=== PATIENT | male | born 1965 | race Caucasian/White ===

== ENCOUNTER 2020-02-05 03:31 | Inpatient (IN) | payer BC, SELFPAY ==
[2020-02-05] VITALS (15 sets, daily range): BP systolic 105–139; BP diastolic 53–78; PULSE 70–84; RESP 13–21; TEMP 36.1–37.9; O2SAT 93–100; BMI 25.7
--- NOTE | ~2020-02-05 | US_ITS ---
EXAMINATION: US renal BI DATE: 02/08/2020 10:20 INDICATION: Acute kidney injury. Chronic kidney disease. TECHNIQUE: Multiple ultrasound grayscale images of the kidneys were obtained. COMPARISON: None. FINDINGS: The right kidney measures 12.2 x 6.1 x 6.2 cm. The left kidney measures 11.5 x 6.3 x 6.2 cm. The kidn eys demonstrate normal parenchymal echogenicity. There is no hydronephrosis. The bladder is not well distended. IMPRESSION: 1. Normal kidneys. No hydronephrosis. Reviewed, dictated and finalized at location A.
--- NOTE | ~2020-02-05 | CT_ITS ---
EXAMINATION: CT pelvis wo con DATE: 02/05/2020 09:55 INDICATION: Left hip abscess TECHNIQUE: Computed tomography (CT) of the pelvis was performed without intravenous contrast. Automat ed exposure control and iterative reconstruction technique were employed. Exam dose: 413.83 mGy-cm t otal exam DLP. COMPARISON: None FINDINGS: Normal appendix. Prostate enlargement. There is urinary bladder distention. There are calcifications of the vas defere ns bilaterally, strongly suggesting diabetes. No pelvic mass lesion or pelvic lymphadenopathy. There are bilateral inguinal lymph nodes, more promi nent on the left, measuring up to 11 mm cross-section diameter. There is soft tissue infiltration of the subcutaneous adipose tissues of the left hip, suggesting ailin lulitis. No abscess cavity is identified. There is distal abdominal aortic and bilateral iliac and femoral arterial calcifications. Prominent amount of fecal material within the rectum and colon. No pelvic fracture or bone destruction is evident. Hip joint spaces are symmetric. IMPRESSION: Probable left hip cellulitis; no abscess cavity identified Bilateral vas deferens calcifications, suggesting diabetes Prostate enlargement. Reviewed, dictated and finalized at Location A. Reviewed, dictated and finalized at location A.
--- NOTE | ~2020-02-05 | XR_ITS ---
XR chest 1V portable DATE: 02/05/2020 04:46 INDICATION: Fever TECHNIQUE: Portable upright AP chest on 02/05/2020 at 0447 hours COMPARISON: None FINDINGS: A moderately large hiatal hernia is suggested. Heart size is likely within upper normal huertas its considering magnification associated with AP projection. No pulmonary infiltrate or consolidation, pleural effusion or pneumothorax. IMPRESSION: No active pulmonary disease Moderately large hiatal hernia is suggested Reviewed, dictated and finalized at location A.
[2020-02-05 03:39] LABS: Glucose Point of Care > 500 (65-105)
--- NOTE | 2020-02-05 03:43 | PC.NURSE ---
UPON ASKING PT FOR URINE SAMPLE AND DISCUSSING POSSIBLE CATHETERIZATION, PT LOUDLY REFUSES, STATING OH NO, YOU'RE NOT GOING TO DO THAT TO ME .
--- NOTE | 2020-02-05 03:44 | ED.RECABL ---
HPI - Recheck/Abnormal Lab/Rx General Chief Complaint: Recheck/Abnormal Lab/Rx Stated Complaint: generalized weakness/ high BS Time Seen by Provider: 02/05/20 03:38 History of Present Illness HPI narrative: BIBEMS for weakness. He has been feeling increasingly weak for the past few days. This evening checked glucose and it was >500. He does not check his glucose regularly. He was reportedly hospitalized [facility] the [facility] recently for diabetic issues and CHF. during that hospitalization he also had an abscess drained in his right axilla. Now he has also developed a sore on his left hip. Related Data Home Medications Medication Instructions Recorded Confirmed acetaminophen 650 mg PO QID 02/05/20 aspirin [Aspirin Low Dose] 81 mg PO DAILY 02/05/20 atorvastatin 80 mg PO HS 02/05/20 carvedilol 18.75 mg PO BID 02/05/20 cholecalciferol (vitamin D3) 25 mcg PO DAILY 02/05/20 [Vitamin D3] clopidogrel 75 mg PO DAILY 02/05/20 ferrous sulfate 325 mg PO DAILY 02/05/20 finasteride 5 mg PO DAILY 02/05/20 glucagon HCl [Glucagon (HCl) 1 mg SUBCUT DIRECTED PRN 02/05/20 Emergency Kit] insulin glargine [Lantus U-100 25 unit SUBCUT HS 02/05/20 Insulin] metformin 1,000 mg PO BID 02/05/20 multivitamin with minerals [Daily 1 tablet PO DAILY 02/05/20 Multivitamin-Minerals] polyvinyl alcohol [Artificial 1 drp OPHTHALMIC (EYE) QID PRN 02/05/20 Tears (polyvin alc)] potassium chloride 40 meq PO DAILY 02/05/20 sacubitril-valsartan [Entresto] 1 tablet PO BID 02/05/20 spironolactone 50 mg PO TID 02/05/20 tamsulosin 0.4 mg PO HS 02/05/20 torsemide 80 mg PO BID 02/05/20 white petrolatum-mineral oil 1 applic TOPICAL BID 02/05/20 [Dermacerin] Allergies Allergy/AdvReac Type Severity Reaction Status Date / Time No Known Allergies Allergy Verified 02/05/20 03:40 Review of Systems Review of Systems: All systems reviewed & are unremarkable except as noted in HPI and below Constitutional: Constitutional: Reports fatigue and Reports weakness Cardiovascular: Cardiovascular: Denies chest pain Respiratory: Respiratory: Denies dyspnea Genitourinary: Genitourinary: Reports oliguria Neurologic: Reports dizziness and Reports numbness (feet) [facility] Past Medical History Medical History (Updated 02/05/20 @ 06:16 by Eleazar Christianson MD) CHF (congestive heart failure) Diabetes Social History Social History Gender identity (if verbalized by the patient): Male Exam Const: General: no acute distress, alert and ill appearing chronically Orientation/consciousness: patient oriented x3 HENMT: Mouth: Yes dry mucous membranes Resp: Effort & Inspection: normal respiratory effort Auscultation: clear to auscultation bilaterally Cardio: Rate: regular rate Rhythm: regular rhythm Skin: Other: erythema and induration of left hip/thigh Neuro: General: patient oriented x3, moves all extremities and CN's II-XI intact bilaterally Speech: normal speech Course Vital Signs Vital signs: Vital Signs Temperature 37.9 C H 02/05/20 03:31 Pulse Rate 82 02/05/20 03:31 Respiratory Rate 21 H 02/05/20 03:31 Blood Pressure 109/64 02/05/20 03:31 Pulse Oximetry 95 02/05/20 03:31 Temperature 37.9 C H 02/05/20 03:31 Pulse Rate 82 02/05/20 03:31 Respiratory Rate 21 H 02/05/20 03:31 Blood Pressure 109/64 02/05/20 03:31 Pulse Oximetry 95 02/05/20 03:31 MDM - Recheck/Abnormal Lab/Rx Medical Records Attestation: I reviewed the patient's medical records. Lab Data Attestation: I reviewed the patient's lab results. Result diagrams: 02/05/20 03:58 02/05/20 03:57 Labs: Lab Results 02/05/20 02/05/20 02/05/20 Range/Units 03:36 03:57 03:57 WBC (4.5-10.0) K/mm3 RBC (4.6-6.20) M/mm3 Hgb (14.0-18.0) g/dL Hct (42.0-52.0) % MCV (80-100) fl MCH (26-34) pg MCHC (32-36) g/dl RDW (11.
[2020-02-05 04:05] LABS: Basophils Percent Auto 0.3 % (0.2-1.2); Eosinophils Absolute Auto 0.1 K/mm3 (0-0.3); Eosinophils Percent Auto 0.5 % (0-4.4); Hematocrit 29.6 % (42.0-52.0); Hemoglobin 10.3 g/dL (14.0-18.0); Immature Granulocyte Absolute 0.08 K/mm3 (0.00-0.031); Immature Granulocyte Percent A 0.6 % (0-0.5); Lymphocytes Absolute Auto 0.43 K/mm3 (0.9-3.2); Lymphocytes Percent Auto 3.2 % (18.3-44.2); Mean Corpuscular HGB Conc 34.8 g/dl (32-36); Mean Corpuscular Hemoglobin 27.8 pg (26-34); Mean Corpuscular Volume 79.8 fl (80-100); Mean Platelet Volume 10.8 fl (7.4-10.4); Monocytes Absolute Auto 0.9 K/mm3 (0.1-0.6); Monocytes Percent Auto 6.9 % (2.6-8.5); Neutrophils Percent Auto 88.5 % (45.5-73.1); Platelet Count Result 193 k/mm3 (150-375); Red Blood Count 3.71 M/mm3 (4.6-6.20); Red Cell Distribution Width 14.6 % (11.5-14.5); White Blood Count 13.6 K/mm3 (4.5-10.0)
[2020-02-05 04:17] LABS: Lactic Acid Reflex 1.2 mmol/L (0.7-2.1)
[2020-02-05 04:23] LABS: Beta-Hydroxybutyrate/Acetoacetate 0.27 mmol/L (0.02-0.27)
[2020-02-05 04:28] LABS: Alanine Aminotransferase 15 U/L (4-50); Albumin Level 3.3 g/dL (3.5-5.1); Alkaline Phosphatase 82 U/L (38-126); Aspartate Amino Transferase 18 U/L (17-59); Bilirubin,Total 0.4 mg/dL (0.2-1.3); Blood Urea Nitrogen 86 mg/dL (9-20); Calcium 8.5 mg/dL (8.4-10.2); Carbon Dioxide 24 mmol/L (22-30); Chloride 88 mmol/L (98-107); Estimated CRCL calculation 26 ml/min; Estimated Glomerular Filt Rate 23; Glucose 556 mg/dL (75-110); Magnesium 1.3 mg/dL (1.6-2.3); Potassium 4.3 mmol/L (3.4-5.0); Sodium 124 mmol/L (137-145)
[2020-02-05 04:37] LABS: NT Pro B Type Natriuretic Pept 17800 PG/ML (5-100); Troponin I 0.111 ng/mL (0.000-0.034)
[2020-02-05] MEDS: SODIUM CHLORIDE 0.9% IV 500 ML 999 ML IV CONT (04:38)
[2020-02-05] MEDS: INSULIN HUMAN REGULAR (*BKC) 100 UNITS/ML 10 UNITS IV PUSH (04:40)
[2020-02-05] MEDS: SODIUM CHLORIDE 0.9% IV 1,000 ML 999 ML IV CONT (05:05)
[2020-02-05 06:26] LABS: Glucose Point of Care 415 (65-105)
--- NOTE | 2020-02-05 06:31 | ECG_ITS ---
Measurements Intervals [place] Rate: 83 P: 43 CO: 213 QRS: -59 QRSD: 114 T: 142 QT: 381 QTc: 448 Interpretive Statements SINUS RHYTHM WITH FIRST DEGREE AV BLOCK POSSIBLE LEFT ATRIAL ENLARGEMENT LEFT AXIS DEVIATION INCOMPLETE LEFT BUNDLE BRANCH BLOCK BORDERLINE R WAVE PROGRESSION, ANTERIOR LEADS ST-T WAVE ABNORMALITY IN HIGH LATERAL LEADS- CONSIDER ISCHEMIA ABNORMAL ECG Electronically Signed On 02-05-2020 7:31:14 CDT by Guillermo Cramer D.O.
--- NOTE | 2020-02-05 07:23 | ADMGEN ---
This patient, Prabhu George, was admitted to IMU Room 205-01. Patient/family oriented to hospital policies and general routines including ID bracelet, bed and alarms, visiting hours, pain management, procedures, bathroom and other care routines, personal items, smoking policy, room service/diet, and visiting hours. Valuables list has been completed. Information on how to activate the Rapid Response Team has been discussed. Patient/Family are encouraged to report perceived risks to care and to ask questions if they do not understand what they are told or what they should do.
[2020-02-05 08:55] LABS: Glucose Point of Care 444 (65-105)
--- NOTE | 2020-02-05 09:14 | PM.IMHP ---
H&P: HPI History of Present Illness Chief complaint: CELLULITIS,HYPERGLYCEMIA,DEHYDRATION,CHF,ELEVATED Narrative: Date of visit 02/04 830. Prabhu George is a 54 year old male white male with uncontrolled type 2 diabetes mellitus on insulin, chronic renal failure, systolic heart failure with coronary artery disease status post multiple stents, who presented to the emergency room by ambulance from nursing facility with complaints of weakness and pain of his left hip. Found to be severely dehydrated with elevated blood sugar and probable abscess left hip. He was bolused with 2 L in the emergency room started on antibiotics and admitted to the floor. Presently his only complaint is discomfort in the hip. He states he has recently admitted to the [facility] for abscess in his right axilla which was drained and had renal failure at that time. Review of Systems Review of Systems: Narrative: Constitutional appetite fair weight has drifted down not sure exactly how much Eyes no double vision scotoma Mouth no pharyngitis laryngitis Pulmonary no increased shortness breath wheezing or cough CV no chest pain or palpitations GI no melena hematochezia or diarrhea, no dysphagia no dysuria no hematuria but states that has trouble voiding post [place] if 1 is placed Muscle skeletal pain left hip as per present illness does walk minimal at the nursing facility Neuropsych no seizures no syncope Integument as above no other rashes PMFSH Past Medical History Medical History (Updated 02/05/20 @ 09:51 by Adam Sauceda MD) CAD (coronary artery disease) CHF (congestive heart failure) Chronic renal failure Diabetes Surgical History Surgical History (Updated 02/05/20 @ 09:43 by Adam Sauceda MD) History of coronary artery stent placement Family History Family History (Updated 02/05/20 @ 09:44 by Adam Sauceda MD) Father , metastatic melanoma age 70 No problems noted. Mother , age 76 renal failure Hypertension Social History Social History (Updated 02/05/20 @ 09:46 by Adam Sauceda MD) Social History: not and no children. 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 Years smoked: 50 Smoking status: Current some day smoker Alcohol intake: never Substance use: never Gender identity (if verbalized by the patient): Male Spiritual care concerns: No Meds Home Medications and Allergies Home Medications Medication Instructions Recorded Confirmed Type acetaminophen 650 mg PO QID PRN 02/05/20 02/05/20 History aspirin [Aspirin Low Dose] 81 mg PO DAILY 02/05/20 02/05/20 History atorvastatin 80 mg PO HS 02/05/20 02/05/20 History carvedilol 18.75 mg PO BID 02/05/20 02/05/20 History cholecalciferol (vitamin D3) 25 mcg PO DAILY 02/05/20 02/05/20 History [Vitamin D3] clopidogrel 75 mg PO DAILY 02/05/20 02/05/20 History ferrous sulfate 325 mg PO DAILY 02/05/20 02/05/20 History finasteride 5 mg PO DAILY 02/05/20 02/05/20 History glucagon HCl [Glucagon (HCl) 1 mg SUBCUT DIRECTED PRN 02/05/20 02/05/20 History Emergency Kit] insulin glargine [Lantus U-100 25 unit SUBCUT HS 02/05/20 02/05/20 History Insulin] metformin 1,000 mg PO DAILY 02/05/20 02/05/20 History multivitamin with minerals [Daily 1 tablet PO DAILY 02/05/20 02/05/20 History Multivitamin-Minerals] polyvinyl alcohol [Artificial 1 drp OPHTHALMIC (EYE) QID PRN 02/05/20 02/05/20 History Tears (polyvin alc)] potassium chloride 40 meq PO DAILY 02/05/20 02/05/20 History sacubitril-valsartan [Entresto] 1 tablet PO BID 02/05/20 02/05/20 History spironolactone 50 mg PO TID 02/05/20 02/05/20 History tamsulosin 0.4 mg PO HS 02/05/20 02/05/20 History torsemide 80 mg PO BID 02/05/20 02/05/20 History white petrolatum-mineral oil 1 applic TOPICAL BID 02/05/20 02/05/20 History [Dermacerin] Allergies Allergy/AdvReac Type Severity Reaction Status Date / Time No Known Allergies Allergy Verified
[2020-02-05] MEDS: SODIUM CHLORIDE 0.9% IV 1,000 ML 100 ML IV CONT ×2 (09:31→20:09)
[2020-02-05] MEDS: MORPHINE SULFATE 2 MG/ML INJ IV PUSH ×2 (09:32→16:51)
[2020-02-05] MEDS: INSULIN GLARGINE (*BKC) 100 UNITS/ML 30 UNITS SUB-Q (09:32)
[2020-02-05] MEDS: INSULIN ASPART (*BKC) 100 UNITS/ML 20 UNITS SUB-Q (09:32)
[2020-02-05 09:44] LABS: Troponin I 0.102 ng/mL (0.000-0.034)
[2020-02-05] MEDS: MAGNESIUM SULF 2 GM/WATER 50ML 2 GM/50 ML BAG IVPB (10:15)
[2020-02-05] MEDS: carvediloL 6.25 MG TABLET 18.75 MG PO ×2 (10:16→20:07)
[2020-02-05] MEDS: THERAPEUTIC MULTIVITAMINS/MINERALS TAB (*BKC) 1 TABLET PO (10:17)
[2020-02-05] MEDS: FINASTERIDE 5 MG TABLET PO (10:17)
[2020-02-05] MEDS: CLOPIDOGREL BISULFATE 75 MG TABLET PO (10:17)
[2020-02-05] MEDS: EUCERIN CREAM 120 GM JAR 1 APPLIC TOPICAL ×2 (10:17→17:51)
[2020-02-05] MEDS: ASPIRIN 81 MG ENTERIC TABLET PO (10:17)
[2020-02-05] MEDS: CHOLECALCIFEROL 1,000 UNIT TABLET 1000 UNITS PO (10:17)
[2020-02-05 12:23] LABS: Blood Urea Nitrogen 82 mg/dL (9-20); Calcium 8.5 mg/dL (8.4-10.2); Carbon Dioxide 24 mmol/L (22-30); Chloride 92 mmol/L (98-107); Estimated CRCL calculation 27 ml/min; Estimated Glomerular Filt Rate 24; Glucose 418 mg/dL (75-110); Phosphorus 3.5 mg/dL (2.5-4.5); Sodium 125 mmol/L (137-145)
[2020-02-05 12:37] LABS: Troponin I 0.102 ng/mL (0.000-0.034)
[2020-02-05] MEDS: IMIPENEM/CILASTATIN SODIUM 250 MG in DEXTROSE 5% 100 ML 300 MG IVPB ×2 (13:04→17:51)
[2020-02-05] MEDS: INSULIN ASPART (*BKC) 100 UNITS/ML SUB-Q (13:04)
[2020-02-05] MEDS: INSULIN ASPART (*BKC) 100 UNITS/ML 25 UNITS SUB-Q (13:14)
[2020-02-05 13:23] LABS: Glucose Point of Care 425 (65-105)
[2020-02-05 16:45] LABS: Glucose Point of Care 161 (65-105)
[2020-02-05 17:10] LABS: Blood Urea Nitrogen 82 mg/dL (9-20); Calcium 8.5 mg/dL (8.4-10.2); Carbon Dioxide 24 mmol/L (22-30); Chloride 96 mmol/L (98-107); Estimated CRCL calculation 27 ml/min; Estimated Glomerular Filt Rate 24; Glucose 135 mg/dL (75-110); Potassium 4.2 mmol/L (3.4-5.0); Sodium 127 mmol/L (137-145)
[2020-02-05] MEDS: ONDANSETRON INJ 4 MG/2 ML VIAL IV PUSH (17:51)
[2020-02-05] MEDS: TAMSULOSIN HCL 0.4 MG CAPSULE PO (20:07)
[2020-02-05] MEDS: ATORVASTATIN 40 MG TABLET 80 MG PO (20:07)
[2020-02-05 21:07] LABS: Glucose Point of Care 72 (65-105)
[2020-02-06] VITALS (13 sets, daily range): BP systolic 100–112; BP diastolic 57–71; PULSE 69–108; RESP 16–20; TEMP 36.1–36.9; O2SAT 95–99
[2020-02-06] MEDS: IMIPENEM/CILASTATIN SODIUM 250 MG in DEXTROSE 5% 100 ML 300 MG IVPB ×4 (00:25→17:38)
[2020-02-06 04:54] LABS: Basophils Percent Auto 0.3 % (0.2-1.2); Eosinophils Absolute Auto 0.2 K/mm3 (0-0.3); Eosinophils Percent Auto 1.2 % (0-4.4); Hematocrit 28.7 % (42.0-52.0); Hemoglobin 9.6 g/dL (14.0-18.0); Immature Granulocyte Absolute 0.08 K/mm3 (0.00-0.031); Immature Granulocyte Percent A 0.6 % (0-0.5); Lymphocytes Absolute Auto 0.73 K/mm3 (0.9-3.2); Lymphocytes Percent Auto 5.3 % (18.3-44.2); Mean Corpuscular HGB Conc 33.4 g/dl (32-36); Mean Corpuscular Hemoglobin 27.5 pg (26-34); Mean Corpuscular Volume 82.2 fl (80-100); Monocytes Percent Auto 7.5 % (2.6-8.5); Neutrophils Absolute Auto 11.7 K/mm3 (1.3-6.7); Neutrophils Percent Auto 85.1 % (45.5-73.1); Platelet Count Result 178 k/mm3 (150-375); Red Blood Count 3.49 M/mm3 (4.6-6.20); Red Cell Distribution Width 14.7 % (11.5-14.5); White Blood Count 13.7 K/mm3 (4.5-10.0)
[2020-02-06 05:21] LABS: Blood Urea Nitrogen 85 mg/dL (9-20); Calcium 8.2 mg/dL (8.4-10.2); Carbon Dioxide 22 mmol/L (22-30); Chloride 95 mmol/L (98-107); Estimated CRCL calculation 29 ml/min; Estimated Glomerular Filt Rate 26; Glucose 172 mg/dL (75-110); Magnesium 1.8 mg/dL (1.6-2.3); Potassium 4.2 mmol/L (3.4-5.0); Sodium 126 mmol/L (137-145)
[2020-02-06] MEDS: MORPHINE SULFATE 2 MG/ML INJ IV PUSH ×3 (06:05→20:39)
[2020-02-06] MEDS: SODIUM CHLORIDE 0.9% IV 1,000 ML 100 ML IV CONT (06:13)
[2020-02-06 07:18] LABS: Hemoglobin A1C 12.6 % (<5.7)
[2020-02-06 08:07] LABS: Glucose Point of Care 193 (65-105)
[2020-02-06] MEDS: THERAPEUTIC MULTIVITAMINS/MINERALS TAB (*BKC) 1 TABLET PO (08:21)
[2020-02-06] MEDS: FINASTERIDE 5 MG TABLET PO (08:21)
[2020-02-06] MEDS: EUCERIN CREAM 120 GM JAR 1 APPLIC TOPICAL ×2 (08:21→17:40)
[2020-02-06] MEDS: CHOLECALCIFEROL 1,000 UNIT TABLET 1000 UNITS PO (08:21)
[2020-02-06] MEDS: ASPIRIN 81 MG ENTERIC TABLET PO (08:21)
[2020-02-06] MEDS: CLOPIDOGREL BISULFATE 75 MG TABLET PO (08:21)
[2020-02-06] MEDS: carvediloL 6.25 MG TABLET 18.75 MG PO ×2 (08:22→20:44)
[2020-02-06] MEDS: INSULIN ASPART (*BKC) 100 UNITS/ML SUB-Q ×4 (08:23→17:42)
[2020-02-06] MEDS: INSULIN GLARGINE (*BKC) 100 UNITS/ML 40 UNITS SUB-Q (08:25)
[2020-02-06 11:53] LABS: Glucose Point of Care 359 (65-105)
--- NOTE | 2020-02-06 12:50 | PM.CNGS ---
Assessment and Plan Assessment and plan (1) Abscess of left thigh: Code(s): L02.416 - Cutaneous abscess of left lower limb Status: Acute Assessment and Plan: I have reviewed the CT and discussed the findings with the patient. He does appear to have an abscess developing in this localized area of cellulitis on his left thigh. I have recommended incision and drainage of abscess to be done at the bedside under local anesthetic. I discussed the procedure, risks, benefits, and alternatives. Questions were answered. Patient is agreeable with proceeding. We will continue antibiotics per hospitalist. Local wound care postoperatively. (2) Cellulitis: Qualifiers: Laterality: left Site of cellulitis: extremity Site of cellulitis of extremity: lower extremity Qualified Code(s): L03.116 - Cellulitis of left lower limb Code(s): L03.90 - Cellulitis, unspecified Status: Acute (3) CAD (coronary artery disease): Code(s): I25.10 - Atherosclerotic heart disease of [place] coronary artery without angina pectoris Status: Acute (4) CHF (congestive heart failure): Code(s): I50.9 - Heart failure, unspecified Status: Acute (5) Diabetes: Code(s): E11.9 - Type 2 diabetes mellitus without complications Status: Acute History of Present Illness Consult details Consult date: 02/06/20 Reason for consult: other (Left thigh abscess) Requesting physician: Adam Sauceda MD Narrative: This is a 54-year-old man who presented to the emergency department with cellulitis of his left lateral thigh. He states that this has been worsening over approximately the last week. He does not recall any scrapes or wounds that could have started this. He denies any prior lump or other abnormality noted in this region. He does have a recent history of a hospitalization for a right axillary abscess. This was incised and drained and has been healing well. Patient has a history of poorly controlled diabetes and significant coronary artery disease with prior history of 10 stents. Review of Systems Review of Systems: All systems reviewed & are unremarkable except as noted in HPI and below Eyes: Eyes: Denies change in vision ENT: Denies hearing loss, Denies neck pain and Denies sore throat Cardiovascular: Cardiovascular: Denies chest pain and Denies dyspnea Respiratory: Respiratory: Denies cough, Denies dyspnea and Denies wheezing Genitourinary: Genitourinary: Denies hematuria and Denies dysuria Musculoskeletal: Musculoskeletal: Denies arthralgias, Denies joint swelling and Denies neck pain Integumentary/Breasts: Skin/Breast: Reports as per HPI Allergic/Immunologic: Allergic/Immunologic: Denies wheezing [facility] Past Medical History Medical History CAD (coronary artery disease) CHF (congestive heart failure) Chronic renal failure Diabetes Surgical History Surgical History History of coronary artery stent placement Family History Family History Father , metastatic melanoma age 70 No problems noted. Mother , age 76 renal failure Hypertension Social History Social History Social History: not and no children. Disabled former class a truck driver for 25 years Years smoked: 50 Smoking status: Current some day smoker Alcohol intake: never Substance use: never Gender identity (if verbalized by the patient): Male Spiritual care concerns: No Meds Home Medications and Allergies Home Medications Medication Instructions Recorded Confirmed Type acetaminophen 650 mg PO QID PRN 02/05/20 02/05/20 History aspirin [Aspirin Low Dose] 81 mg PO DAILY 02/05/20 02/05/20 History atorvastatin 80 mg PO HS 02/05/20
--- NOTE | 2020-02-06 12:58 | P.OP_ITS ---
Procedure Note - Detailed Date of procedure: 02/06/20 Pre-op diagnosis: Left thigh abscess Post-op diagnosis: same Procedure performed: Incision and drainage left thigh abscess Description of procedure: * Left thigh area prepped and draped in sterile fashion using Betadine prep. 1% lidocaine with epinephrine infiltrated locally around area of abscess. 3 cm incision made using a 15 blade scalpel directly over the area of the central induration. Incision carried deep to the dermis until purulence drainage was encountered. A carefully broke up any loculations using a straight hemostat. Once all the purulence fluid was dr ained, the wound was packed with half-inch gauze. 4 x 4 gauze was applied followed by tape. Anesthesia: local (1% lidocaine with epinephrine) Surgeon: Ralph Escobedo DO Estimated blood loss (mL): 2 Packing: Yes (1/2 inch Nu Gauze) Complications: No immediate complications Condition: stable Disposition: floor Findings: * 3 cm incision made over the area of induration. There did appear to be several small pockets of abscess developing. About 5-10 cc of purulence fluid was drained. The wound was then packed with half-inch Nu Gauze.
--- NOTE | 2020-02-06 13:55 | PM.IMPN ---
Progress Note: A&P Assessment and Plan (1) Cellulitis: Qualifiers: Laterality: left Site of cellulitis: extremity Site of cellulitis of extremity: lower extremity Qualified Code(s): L03.116 - Cellulitis of left lower limb Code(s): L03.90 - Cellulitis, unspecified Status: Acute Assessment and Plan: With abscess. CT did not reveal any abscess cavity but surgery I and D the area with drainage of purulent material today (2) Renal failure (ARF), acute on chronic: Code(s): N17.9 - Acute kidney failure, unspecified; N18.9 - Chronic kidney disease, unspecified Status: Acute Assessment and Plan: Assumed acute on chronic. Do not know his baseline creatinine but is severely dehydrated at present time and will continue hydration but slow over 8 so as not to volume overload (3) Elevated troponin: Code(s): R79.89 - Other specified abnormal findings of blood chemistry Status: Acute Assessment and Plan: Suspect secondary to renal failure with no evidence of any ischemia even though has history of coronary disease (4) Diabetes: Code(s): E11.9 - Type 2 diabetes mellitus without complications Status: Acute Assessment and Plan: Uncontrolled. A1c 12 Increased Lantus, added NovoLog with meals, and sliding scale. CO2 normal and beta hydroxybutyrate normal with no evidence of acidosis (5) CHF (congestive heart failure): Code(s): I50.9 - Heart failure, unspecified Status: Acute Assessment and Plan: Patient states he has had ejection fraction of 10% in the past. Hydrate for his renal failure and watch for any signs of decompensation or fluid overload continue his beta-rena but hold his Entresto and diuretic with his renal status at present time (6) DVT prophylaxis: Code(s): Z29.9 - Encounter for prophylactic measures, unspecified Status: Acute Assessment and Plan: Subcu heparin with the renal failure He will need more than a 2 midnight stay (7) Hyponatremia: Code(s): E87.1 - Hypo-osmolality and hyponatremia Status: Acute Assessment and Plan: Probable primarily pseudo hyponatremia with degree hyperglycemia monitor with hydration and check urine electrolytes if need be Subjective Date/time seen: 02/06/20 13:55 Interval history: Date of visit 02/05. 48-year-old white male type 2 diabetes uncontrolled, acute on chronic renal failure, cellulitis and are abscess of left admitted for treatment of the same. Dehydrated blood sugar over 500 on admission.. Its feels better this a.m. but hip still sore. CT did not reveal any abscess cavity Exam Narrative: Exam Narrative: Blood pressure 114/70 pulse is 78 temp afebrile and satting 95% on room air Pupils equal reactive light sclera anicteric Mouth edentulous Neck supple Lungs clear CV regular rate rhythm faint systolic ejection murmur Abdomen soft nontender, bowel sounds normal active Extremities without edema dorsalis pedis posterior tibial 2+ symmetrical Over left proximal thigh lateral aspect close to the hip with there is a 4 x 4 cm indurated erythematous tender area are compatible with abscess more pronounce then 02/04 but still not fluctuant Neuro alert blood cooperative no focal deficits cranial nerves 2-12 are intact Integument as above and has a healing lesion in his right axilla from previous incision and drainage Objective Data Vital Signs Vital Signs: Vital Signs - 24 hr 02/05/20 14:00 02/05/20 16:00 02/05/20 18:00 Temperature 36.4 C Pulse Rate 78 77 77 Respiratory Rate 18 Blood Pressure 127/59 L Pulse Oximetry 96 02/05/20 19:50 02/05/20 20:00 02/05/20 20:07 Temperature Pulse Rate 71 70 70 Respiratory Rate 18 Blood Pressure 108/57 L Pulse Oximetry 93 02/05/20 22:00 02/05/20 23:58 02/06/20 00:00 Temperature 36.1 C L Pulse Rate 71 74 72 Respiratory Rate 18 Blood Pressure 105/53 L Pulse Oximetr
[2020-02-06] MEDS: INSULIN GLARGINE (*BKC) 100 UNITS/ML 10 UNITS SUB-Q (15:14)
--- NOTE | 2020-02-06 15:25 | PC.NURSE ---
Addendum entered by Keri Whitlock RN 02/06/20 15:37: This patient, Prabhu George, was transferred to [facility] 322 from [facility] via bed at 1525. Personal belongs sent with patient. Belongings list checked and signed with receiving RN. Report given to ZAIDA Tapia. Appropriate documentation sent with patient. Original Note: This patient, Prabhu George, was transferred to [ ] on 02/06/20 at 1525. Personal belongings sent with patient. Belongings list checked and signed with receiving [ ]. Report given to [ ]. Appropriate documentation sent with patient.
[2020-02-06] MEDS: INSULIN ASPART (*BKC) 100 UNITS/ML 10 UNITS SUB-Q (17:43)
[2020-02-06 17:47] LABS: Glucose Point of Care 235 (65-105)
--- NOTE | 2020-02-06 18:22 | PC.NURSE ---
This patient, Prabhu George, was received from [facility] on 02/06/20 at 1525. Personal belongings list checked and signed. Patient/family oriented to unit policies and routines
[2020-02-06] MEDS: ATORVASTATIN 40 MG TABLET 80 MG PO (20:43)
[2020-02-06] MEDS: TAMSULOSIN HCL 0.4 MG CAPSULE PO (20:45)
[2020-02-06] MEDS: SODIUM CHLORIDE 0.9% IV 1,000 ML 50 ML IV CONT (20:47)
[2020-02-06 21:00] LABS: Add Urine Microscopic? YES; Appearance Urine Cloudy (Clear); Bacteria Urine Trace /hpf; Bilirubin Urine Negative (Negative); Blood Urine Negative (Negative); Color Urine Yellow (Yellow); Glucose Urine UA 3+ mg/dL (Negative); Ketones Urine Negative (Negative); Leukocyte Esterase Ur Negative LEU/UL (Negative); Mucus Urine Rare /lpf; Nitrate Urine Negative (Negative); Protein Urine 3+ mg/dL (Negative); Specific Grav Ur 1.011 (1.001-1.035); Squamous Epithelial Cell Urine Rare /hpf (Few); WBC Urine 0-3 /hpf
[2020-02-06 21:12] LABS: Creatinine Urine 71.9 mg/dL
[2020-02-06 21:13] LABS: Sodium Urine Random 14 meq/L
[2020-02-06 21:39] LABS: Glucose Point of Care 174 (65-105)
[2020-02-06] MEDS: CALCIUM CARBONATE (TUMS) 500 MG (200 MG ELEMENTAL) PO (22:34)
[2020-02-07] MEDS: IMIPENEM/CILASTATIN SODIUM 250 MG in DEXTROSE 5% 100 ML 300 MG IVPB ×5 (00:28→23:46)
[2020-02-07] MEDS: MORPHINE SULFATE 2 MG/ML INJ IV PUSH ×2 (05:35→13:59)
[2020-02-07] MEDS: CALCIUM CARBONATE (TUMS) 500 MG (200 MG ELEMENTAL) PO (05:36)
[2020-02-07 06:00] VITALS: BP 102/55; PULSE 76; RESP 20; TEMP 36.7; O2SAT 94
[2020-02-07 06:01] LABS: Basophils Percent Auto 0.2 % (0.2-1.2); Eosinophils Absolute Auto 0.2 K/mm3 (0-0.3); Hematocrit 26.3 % (42.0-52.0); Hemoglobin 8.8 g/dL (14.0-18.0); Immature Granulocyte Absolute 0.08 K/mm3 (0.00-0.031); Immature Granulocyte Percent A 0.7 % (0-0.5); Lymphocytes Absolute Auto 0.66 K/mm3 (0.9-3.2); Lymphocytes Percent Auto 5.7 % (18.3-44.2); Mean Corpuscular HGB Conc 33.5 g/dl (32-36); Mean Corpuscular Hemoglobin 27.7 pg (26-34); Mean Corpuscular Volume 82.7 fl (80-100); Mean Platelet Volume 10.4 fl (7.4-10.4); Monocytes Absolute Auto 0.7 K/mm3 (0.1-0.6); Monocytes Percent Auto 6.4 % (2.6-8.5); Neutrophils Absolute Auto 9.8 K/mm3 (1.3-6.7); Platelet Count Result 178 k/mm3 (150-375); Red Blood Count 3.18 M/mm3 (4.6-6.20); Red Cell Distribution Width 14.6 % (11.5-14.5); White Blood Count 11.5 K/mm3 (4.5-10.0)
[2020-02-07 06:15] LABS: Albumin Level 2.6 g/dL (3.5-5.1); Blood Urea Nitrogen 82 mg/dL (9-20); Calcium 7.9 mg/dL (8.4-10.2); Carbon Dioxide 21 mmol/L (22-30); Chloride 95 mmol/L (98-107); Estimated CRCL calculation 27 ml/min; Estimated Glomerular Filt Rate 24; Glucose 218 mg/dL (75-110); Phosphorus 4.8 mg/dL (2.5-4.5); Potassium 4.6 mmol/L (3.4-5.0); Sodium 125 mmol/L (137-145)
[2020-02-07 06:54] LABS: Iron 54 ug/dL (49-181)
[2020-02-07 07:03] LABS: Percent Iron Saturation 29 % (20-50)
--- NOTE | 2020-02-07 08:32 | PCOTNOTE ---
Patient refusing therapy this AM. Patient Agitated and refusing to participate at this time despite encouragement. Will attempt OT evaluation at later time.
[2020-02-07 08:41] LABS: Glucose Point of Care 214 (65-105)
[2020-02-07] MEDS: INSULIN ASPART (*BKC) 100 UNITS/ML SUB-Q ×2 (08:53→12:39)
[2020-02-07] MEDS: INSULIN ASPART (*BKC) 100 UNITS/ML 10 UNITS SUB-Q ×3 (08:54→17:59)
[2020-02-07] MEDS: INSULIN GLARGINE (*BKC) 100 UNITS/ML 50 UNITS SUB-Q (08:59)
[2020-02-07] MEDS: EUCERIN CREAM 120 GM JAR 1 APPLIC TOPICAL ×2 (09:00→17:56)
[2020-02-07] MEDS: THERAPEUTIC MULTIVITAMINS/MINERALS TAB (*BKC) 1 TABLET PO (09:01)
[2020-02-07] MEDS: ASPIRIN 81 MG ENTERIC TABLET PO (09:01)
[2020-02-07] MEDS: CHOLECALCIFEROL 1,000 UNIT TABLET 1000 UNITS PO (09:01)
[2020-02-07] MEDS: CLOPIDOGREL BISULFATE 75 MG TABLET PO (09:01)
[2020-02-07] MEDS: FINASTERIDE 5 MG TABLET PO (09:01)
[2020-02-07 09:02] VITALS: PULSE 74
[2020-02-07] MEDS: carvediloL 6.25 MG TABLET 18.75 MG PO ×2 (09:02→20:28)
--- NOTE | 2020-02-07 10:03 | PM.PNGS ---
Progress Note: A&P Assessment and Plan (1) Abscess of left thigh: Code(s): L02.416 - Cutaneous abscess of left lower limb Status: Acute Assessment and Plan: Continue local wound care with daily dressing changes. Packing changes will be able to be done at [place] on discharge. Will add silver gel to the wound care prior to packing on the left thigh wound. Okay to discharge the patient from a surgical standpoint when okay with other services. Follow-up in the office with Dr. Escobedo or myself in 1-2 weeks. (2) Cellulitis: Qualifiers: Laterality: left Site of cellulitis: extremity Site of cellulitis of extremity: lower extremity Qualified Code(s): L03.116 - Cellulitis of left lower limb Code(s): L03.90 - Cellulitis, unspecified Status: Acute Assessment and Plan: Improving. Continue antibiotics. See plan above. (3) CAD (coronary artery disease): Code(s): I25.10 - Atherosclerotic heart disease of [place] coronary artery without angina pectoris Status: Acute (4) CHF (congestive heart failure): Code(s): I50.9 - Heart failure, unspecified Status: Acute (5) Diabetes: Code(s): E11.9 - Type 2 diabetes mellitus without complications Status: Acute Assessment and Plan: Glucose in 500's on admission. Blood glucose improving with this in the 200's overnight and this morning. Management per Hospitalist. Additional Plan Discussed plan of care with Dr. Escobedo. Subjective Subjective Date/Time Seen: 02/07/20 09:10 Post Op day: 1 (I&D left thigh abscess) Patient reports: no new complaints, feels better and pain is less Interval history: Patient reports feeling better today. States his left thigh pain has improved since the I&D with less pressure pain. No acute events overnight or other complaints at this time. Review of Systems Review of Systems: All systems reviewed & are unremarkable except as noted in HPI and below Exam Const: General: comfortable and no acute distress Orientation/consciousness: patient oriented x3 Skin: Other: Left lateral posterior thigh incision packing removed. Surrounding erythema and induration seems to be improved and patient reportedly is less tender. No purulent drainage noted. At the base of the wound bed there is loose thomas slough. Neuro: General: moves all extremities and no focal motor deficits Extrem: General: normal to inspection Objective Data Vital Signs Vital Signs: Vital Signs - 24 hr 02/06/20 10:11 02/06/20 12:00 02/06/20 14:00 Temperature 36.9 C Pulse Rate 74 78 69 Respiratory Rate 20 Blood Pressure 112/71 Pulse Oximetry 95 02/06/20 16:00 02/06/20 20:44 02/06/20 22:00 Temperature 36.3 C L 36.7 C Pulse Rate 75 78 77 Respiratory Rate 18 20 Blood Pressure 109/66 100/57 L Pulse Oximetry 99 96 02/07/20 06:00 02/07/20 09:02 Temperature 36.7 C Pulse Rate 76 74 Respiratory Rate 20 Blood Pressure 102/55 L Pulse Oximetry 94 Intake/Output Intake/Output: Intake & Output 02/04/20 02/05/20 02/06/20 02/07/20 23:59 23:59 23:59 23:59 Intake Total 3490 3570 1010 Output Total 500 0 900 Balance 2990 3570 110 Meds/Results Medications: Active Medications Generic Name Dose Route Start Last Admin Trade Name Freq PRN Reason Stop Dose Admin Acetaminophen 650 mg 02/05/20 08:36 Tylenol Tablet PO QID PRN Pain (Scale Score 1-3) Hydrocodone Bitart/Acetaminophen 1 tab 02/05/20 09:01 [place] 5-325 Mg PO Q6H PRN Pain Rated 4-6 Aspirin 81 mg 02/05/20 09:00 02/07/20 09:01 Aspirin Ec PO 81 mg DAILY DAVIAN Administration Atorvastatin Calcium 80 mg 02/05/20 21:00 02/06/20 20:43 Lipitor PO 80 mg HS DAVIAN Administration Calcium Carbonate 200 mg 02/06/20 21:50 02/07/20 05:36 Tums PO 200 mg Q6H PRN Administration Indigestion Carvedilol 18.75 mg 02/05/20 09:00 02/07/20 09:02 Coreg PO 18.75 mg Q12H
[2020-02-07 12:43] LABS: Glucose Point of Care 234 (65-105)
[2020-02-07 14:00] VITALS: BP 104/55; PULSE 73; RESP 16; TEMP 36.4; O2SAT 94
--- NOTE | 2020-02-07 15:25 | PM.IMPN ---
Progress Note: A&P Assessment and Plan (1) Cellulitis: Qualifiers: Laterality: left Site of cellulitis: extremity Site of cellulitis of extremity: lower extremity Qualified Code(s): L03.116 - Cellulitis of left lower limb Code(s): L03.90 - Cellulitis, unspecified Status: Acute Assessment and Plan: Cellulitis of the left lep with abscess. CT did not reveal any abscess cavity but surgery I and D the area with drainage of purulent material on 02/07/20 (POD #1). BCx NGTD. WBC trending down and no fevers. Appreciate surgery input. Continue Primaxin and Vanco. (2) Renal failure (ARF), acute on chronic: Code(s): N17.9 - Acute kidney failure, unspecified; N18.9 - Chronic kidney disease, unspecified Status: Acute Assessment and Plan: Assumed acute on chronic but Cr relatively unchanged since admission. Could be acute related to the infection. Continue slow hydration. Consider nephrology consult. Check renal US. (3) Elevated troponin: Code(s): R79.89 - Other specified abnormal findings of blood chemistry Status: Acute Assessment and Plan: Trop elevated at 0.11 but flat. EKG showing high lateral T wave inversions. He has hx of CAD. Will check Echo. (4) Anemia: Code(s): D64.9 - Anemia, unspecified Status: Acute Assessment and Plan: Anemia noted on admission and has been trending down. Most likely anemia of chronic disease given iron studies. Continue to monitor. (5) Diabetes: Code(s): E11.9 - Type 2 diabetes mellitus without complications Status: Acute Assessment and Plan: Glucose 556 on admission. DM is uncontrolled. A1c 12 Glucose reviewed on 02/07/20 and better controlled overall. Currently on Lantus and NovoLog with meals. Current Lantus dose just started so will hold on readjustment for now. Continue sliding scale. (6) CHF (congestive heart failure): Code(s): I50.9 - Heart failure, unspecified Status: Acute Assessment and Plan: Patient states he has had ejection fraction of 10% in the past. Currently on NS for gentle hydration for renal failure. No evidence of overload clinically. Continue to monitor closely. Continue Coreg. His Entresto and diuretic remain on hold due to his renal failure. (7) Hyponatremia: Code(s): E87.1 - Hypo-osmolality and hyponatremia Status: Acute Assessment and Plan: Sodium low but stable at 125 today. Phi 14 (FENa 0.4) but with underlying renal disease. Currently on NS at 50ml/hr. Off diuretics still. Continue to monitor. (8) DVT prophylaxis: Code(s): Z29.9 - Encounter for prophylactic measures, unspecified Status: Acute Assessment and Plan: Subcu heparin Subjective Date/time seen: 02/07/20 15:25 Interval history: 48yo male with DM CKD and CHF here for cellulitis and abscess of left hip. Assuming care. Chart reviewed. Slept well last night. Eating normally. Likes the food here better than the NH. He complains of abd pain and feeling constipated. last BM 3 days ago. No CP or SOB. no orthopnea. Exam Narrative: Exam Narrative: AF 104/55 73 Gen - NARD Chest - Decreased BS bibasilar L>R, nml RR CV - RRR S1/S2 with a split S2 left sternal border Abd - soft, NT/ND, +BS Ext - no pedal edema, 2+ DP bilaterally Psych - nml mood but odd affect Skin - left lateral thigh/hip dressing clean, dry and intact. Objective Data Vital Signs Vital Signs: Vital Signs - 24 hr 02/06/20 16:00 02/06/20 20:44 02/06/20 22:00 Temperature 97.4 F L 98.0 F Pulse Rate 75 78 77 Respiratory Rate 18 20 Blood Pressure 109/66 100/57 L Pulse Oximetry 99 96 02/07/20 06:00 02/07/20 09:02 02/07/20 14:00 Temperature 98.1 F 97.5 F L Pulse Rate 76 74 73 Respiratory Rate 20 16 Blood Pressure 102/55 L 104/55 L Pulse Oximetry 94 94 Intake/Output Intake/Output: Intake & O
[2020-02-07 18:03] LABS: Glucose Point of Care 131 (65-105)
[2020-02-07 20:28] VITALS: PULSE 76
[2020-02-07] MEDS: SODIUM CHLORIDE 0.9% IV 1,000 ML 50 ML IV CONT (20:28)
[2020-02-07] MEDS: DOCUSATE SODIUM 100 MG CAPSULE PO (20:28)
[2020-02-07] MEDS: ATORVASTATIN 40 MG TABLET 80 MG PO (20:28)
[2020-02-07] MEDS: TAMSULOSIN HCL 0.4 MG CAPSULE PO (20:29)
[2020-02-07 20:52] LABS: Glucose Point of Care 109 (65-105)
[2020-02-07 22:00] VITALS: BP 110/70; PULSE 71; RESP 18; TEMP 36.6; O2SAT 96
--- NOTE | 2020-02-08 | ECHO_ITS ---
Patient Info Name: Prabhu George Age: 54 years : 1965 Gender: Male Ht: 69 in Wt: 189 lbs BSA: 2.06 m2 HR: 75 bpm BP: 113 / 57 mmHg Heart Rhythm: Sinus Rhythm Technical Quality: Good Exam Date: 02/08/2020 10:51 AM Exam Location: [facility] Patient Status: Inpatient Admit Date: 02/05/2020 Staff Ordering Physician: Go Hartley MD [employer] Operator: Roly Duong RDCS Attending Provider: Go Hartley MD Exam Type: CA echo doppler color flow Study Info Indications I50.9 - Heart failure, unspecified Complete two-dimensional, color flow and Doppler transthoracic echocardiogram is performed. Strain analysis performed. History/Risk Factors CHF w/ BNP 17.8k; DM2, renal failure, CAD w/ stents, cellulitis. Summary 1. Left ventricular chamber dimension is moderately enlarged. 2. Left ventricular systolic function is moderately reduced, estimated at 35-40%. 3. Left ventricular septal wall motion is abnormal with septal motion related to bundle branch block. 4. The left ventricular diastolic function is grade I diastolic dysfunction. 5. E/e' 20 is elevated. 6. Global longitudinal strain is abnormal at -7.4%. 7. Right ventricular systolic function is reduced based on a TAPSE 1.2 cm. 8. Left atrial chamber dimension is severely enlarged. 9. Right atrial chamber dimension is moderately enlarged. 10. There is mild mitral valve regurgitation. 11. There is moderate tricuspid valve regurgitation. 12. Severe pulmonary hypertension, estimated pulmonary arterial systolic pressure is 91 mmHg. 13. There is trace pulmonic regurgitation. 14. Dilated inferior vena cava with >50% collapse upon inspiration consistent with elevated right atrial pressure, 10 mmHg. 15. There is small pericardial effusion posteriorly and laterally located. Left Ventricle E/e' 20 is elevated. Global longitudinal strain is abnormal at -7.4%. Left ventricular chamber dimension is moderately enlarged. Left ventricular systolic function is moderately reduced, estimated at 35-40%. Left ventricular septal wall motion is abnormal with septal motion related to bundle branch block. The left ventricular diastolic function is grade I diastolic dysfunction. Right Ventricle Right ventricular systolic function is reduced based on a TAPSE 1.2 cm. Right ventricular chamber dimension is not well visualized. Left Atria Left atrial chamber dimension is severely enlarged. Right Atria Right atrial chamber dimension is moderately enlarged. Aortic Valve The aortic valve is trileaflet. There is no aortic valve stenosis. There is no aortic valve regurgitation. Pulmonic Valve There is trace pulmonic regurgitation. Mitral Valve There is no mitral valve stenosis. There is mild mitral valve regurgitation. Tricuspid Valve There is moderate tricuspid valve regurgitation. Severe pulmonary hypertension, estimated pulmonary arterial systolic pressure is 91 mmHg. Pericardium/Pleural There is small pericardial effusion posteriorly and laterally located. Inferior Vena Cava Dilated inferior vena cava with >50% collapse upon inspiration consistent with elevated right atrial pressure, 10 mmHg. Aorta The aortic root size at the sinus of Valsalva is normal. Left Ventricular Outflow Tract Name Value Normal
[2020-02-08] MEDS: ONDANSETRON INJ 4 MG/2 ML VIAL IV PUSH (01:10)
[2020-02-08 01:50] LABS: Add Urine Microscopic? YES; Appearance Urine Cloudy (Clear); Bacteria Urine Trace /hpf; Bilirubin Urine Negative (Negative); Blood Urine Negative (Negative); Budding Yeast Urine Present /hpf; Color Urine Yellow (Yellow); Glucose Urine UA 2+ mg/dL (Negative); Ketones Urine Negative (Negative); Leukocyte Esterase Ur Negative LEU/UL (NEGATIVE); Mucus Urine Rare /lpf; Nitrate Urine Negative (Negative); Protein Urine 2+ mg/dL (Negative); Specific Grav Ur 1.012 (1.001-1.035); Squamous Epithelial Cell Urine Occasional /hpf (Few); WBC Urine 0-3 /hpf (0-3)
[2020-02-08] MEDS: MORPHINE SULFATE 2 MG/ML INJ IV PUSH ×2 (02:57→21:34)
[2020-02-08] MEDS: IMIPENEM/CILASTATIN SODIUM 250 MG in DEXTROSE 5% 100 ML 300 MG IVPB ×4 (05:47→23:39)
[2020-02-08 06:00] VITALS: BP 101/61; PULSE 72; RESP 18; TEMP 36.6; O2SAT 92
[2020-02-08 06:01] LABS: Basophils Percent Auto 0.2 % (0.2-1.2); Eosinophils Absolute Auto 0.2 K/mm3 (0-0.3); Eosinophils Percent Auto 1.5 % (0-4.4); Hematocrit 24.7 % (42.0-52.0); Hemoglobin 8.4 g/dL (14.0-18.0); Immature Granulocyte Absolute 0.07 K/mm3 (0.00-0.031); Immature Granulocyte Percent A 0.6 % (0-0.5); Lymphocytes Absolute Auto 0.53 K/mm3 (0.9-3.2); Lymphocytes Percent Auto 4.6 % (18.3-44.2); Mean Corpuscular Hemoglobin 28.2 pg (26-34); Mean Corpuscular Volume 82.9 fl (80-100); Mean Platelet Volume 10.6 fl (7.4-10.4); Monocytes Absolute Auto 0.7 K/mm3 (0.1-0.6); Monocytes Percent Auto 5.9 % (2.6-8.5); Neutrophils Percent Auto 87.2 % (45.5-73.1); Platelet Count Result 177 k/mm3 (150-375); Red Blood Count 2.98 M/mm3 (4.6-6.20); Red Cell Distribution Width 14.6 % (11.5-14.5); White Blood Count 11.5 K/mm3 (4.5-10.0)
[2020-02-08 06:04] LABS: Albumin Level 2.6 g/dL (3.5-5.1); Blood Urea Nitrogen 86 mg/dL (9-20); Calcium 7.9 mg/dL (8.4-10.2); Carbon Dioxide 18 mmol/L (22-30); Chloride 94 mmol/L (98-107); Estimated CRCL calculation 27 ml/min; Estimated Glomerular Filt Rate 24; Glucose 127 mg/dL (75-110); Magnesium 1.8 mg/dL (1.6-2.3); Phosphorus 5.2 mg/dL (2.5-4.5); Potassium 4.6 mmol/L (3.4-5.0); Sodium 124 mmol/L (137-145)
[2020-02-08 08:13] LABS: Glucose Point of Care 132 (65-105)
[2020-02-08 09:21] VITALS: PULSE 78
[2020-02-08] MEDS: CLOPIDOGREL BISULFATE 75 MG TABLET PO (09:21)
[2020-02-08] MEDS: FINASTERIDE 5 MG TABLET PO (09:21)
[2020-02-08] MEDS: DOCUSATE SODIUM 100 MG CAPSULE PO ×2 (09:21→20:48)
[2020-02-08] MEDS: CHOLECALCIFEROL 1,000 UNIT TABLET 1000 UNITS PO (09:21)
[2020-02-08] MEDS: carvediloL 6.25 MG TABLET 18.75 MG PO ×2 (09:21→20:48)
[2020-02-08] MEDS: ASPIRIN 81 MG ENTERIC TABLET PO (09:21)
[2020-02-08] MEDS: THERAPEUTIC MULTIVITAMINS/MINERALS TAB (*BKC) 1 TABLET PO (09:21)
[2020-02-08] MEDS: EUCERIN CREAM 120 GM JAR 1 APPLIC TOPICAL ×2 (09:23→17:57)
[2020-02-08] MEDS: INSULIN GLARGINE (*BKC) 100 UNITS/ML 40 UNITS SUB-Q (09:37)
[2020-02-08] MEDS: INSULIN ASPART (*BKC) 100 UNITS/ML 7 UNITS SUB-Q ×2 (09:38→12:49)
[2020-02-08 09:46] LABS: Vancomycin Trough 20.7 ug/mL (10.0-20.0)
--- NOTE | 2020-02-08 11:52 | PM.PNGS ---
Progress Note: A&P Assessment and Plan (1) Abscess of left thigh: Code(s): L02.416 - Cutaneous abscess of left lower limb Status: Acute Assessment and Plan: Continue local wound care with daily silver gel and packing 1/2 iodoform. Packing changes will be able to be done at [place] on discharge. Okay to discharge the patient from a surgical standpoint when okay with other services. Follow-up in the office with Dr. Escobedo or myself in 1 week. (2) Cellulitis: Qualifiers: Laterality: left Site of cellulitis: extremity Site of cellulitis of extremity: lower extremity Qualified Code(s): L03.116 - Cellulitis of left lower limb Code(s): L03.90 - Cellulitis, unspecified Status: Acute Assessment and Plan: Improving. Continue antibiotics. See plan above. (3) CAD (coronary artery disease): Code(s): I25.10 - Atherosclerotic heart disease of [place] coronary artery without angina pectoris Status: Acute (4) CHF (congestive heart failure): Code(s): I50.9 - Heart failure, unspecified Status: Acute (5) Diabetes: Code(s): E11.9 - Type 2 diabetes mellitus without complications Status: Acute Assessment and Plan: Glucose in 500's on admission. Blood glucose improving and down to 100's today. Management per Hospitalist. Additional Plan Discussed plan of care with Dr. Escobedo. Subjective Subjective Date/Time Seen: 02/08/20 10:00 Post Op day: 2 Patient reports: no new complaints, feels better and pain is less Interval history: Patient reports feeling well today. No new complaints. Pain continues to improve. Review of Systems Review of Systems: All systems reviewed & are unremarkable except as noted in HPI and below Exam Const: General: comfortable and alert; No acute distress Orientation/consciousness: patient oriented x3 Skin: Other: Left lateral posterior thigh incision packing removed. Surrounding erythema and induration continue to improve. Still some [place] slough noted in the wound bed. No purulent drainage noted. Neuro: General: moves all extremities and no focal motor deficits Extrem: General: normal to inspection Objective Data Vital Signs Vital Signs: Vital Signs - 24 hr 02/07/20 14:00 02/07/20 20:28 02/07/20 22:00 Temperature 36.4 C L 36.6 C Pulse Rate 73 76 71 Respiratory Rate 16 18 Blood Pressure 104/55 L 110/70 Pulse Oximetry 94 96 02/08/20 06:00 02/08/20 09:21 Temperature 36.6 C Pulse Rate 72 78 Respiratory Rate 18 Blood Pressure 101/61 Pulse Oximetry 92 Intake/Output Intake/Output: Intake & Output 02/05/20 02/06/20 02/07/20 02/08/20 23:59 23:59 23:59 23:59 Intake Total 3490 3570 3290 850 Output Total 500 0 1100 Balance 2990 3570 2190 850 Meds/Results Medications: Active Medications Generic Name Dose Route Start Last Admin Trade Name Freq PRN Reason Stop Dose Admin Acetaminophen 650 mg 02/05/20 08:36 Tylenol Tablet PO QID PRN Pain (Scale Score 1-3) Hydrocodone Bitart/Acetaminophen 1 tab 02/05/20 09:01 [place] 5-325 Mg PO Q6H PRN Pain Rated 4-6 Aspirin 81 mg 02/05/20 09:00 02/08/20 09:21 Aspirin Ec PO 81 mg DAILY DAVIAN Administration Atorvastatin Calcium 80 mg 02/05/20 21:00 02/07/20 20:28 Lipitor PO 80 mg HS DAVIAN Administration Calcium Carbonate 200 mg 02/06/20 21:50 02/07/20 05:36 Tums PO 200 mg Q6H PRN Administration Indigestion Carvedilol 18.75 mg 02/05/20 09:00 02/08/20 09:21 Coreg PO 18.75 mg Q12HR DAVIAN Administration Clopidogrel Bisulfate 75 mg 02/05/20 09:00 02/08/20 09:21 Plavix PO 75 mg DAILY DAVIAN Administration Dextrose 12.5 gm 02/05/20 08:39 Dextrose 50% Syringe IV PUSH PRN PRN Hypoglycemia Protocol Docusate Sodium 100 mg 02/07/20 21:00 02/08/20 09:21 Colace Capsule PO 100 mg Q12HR DAVIAN Administration Finasteride 5 mg 02/05/20 09:00 0
[2020-02-08 12:52] LABS: Glucose Point of Care 162 (65-105)
[2020-02-08 14:00] VITALS: BP 107/65; PULSE 71; RESP 16; TEMP 36.5; O2SAT 95
--- NOTE | 2020-02-08 15:30 | PM.IMPN ---
Progress Note: A&P Assessment and Plan (1) Cellulitis: Qualifiers: Laterality: left Site of cellulitis: extremity Site of cellulitis of extremity: lower extremity Qualified Code(s): L03.116 - Cellulitis of left lower limb Code(s): L03.90 - Cellulitis, unspecified Status: Acute Assessment and Plan: Cellulitis of the left lep with abscess. CT did not reveal any abscess cavity but surgery I and D the area with drainage of purulent material on 02/07/20 (POD #2). BCx NGTD. WBC trending down and no fevers.. Continue Primaxin and Vanco. And local care. Possible discharge 02/07 (2) Renal failure (ARF), acute on chronic: Code(s): N17.9 - Acute kidney failure, unspecified; N18.9 - Chronic kidney disease, unspecified Status: Acute Assessment and Plan: Assumed acute on chronic but Cr relatively unchanged since admission. Could be acute related to the infection. Will stop IV fluids after today. renal US no hydro. (3) Elevated troponin: Code(s): R79.89 - Other specified abnormal findings of blood chemistry Status: Acute Assessment and Plan: Trop elevated at 0.11 but flat. EKG showing high lateral T wave inversions. He has hx of CAD. Will check Echo. (4) Anemia: Code(s): D64.9 - Anemia, unspecified Status: Acute Assessment and Plan: Anemia noted on admission and has been trending down. Most likely anemia of chronic disease given iron studies. Continue to monitor. (5) Diabetes: Code(s): E11.9 - Type 2 diabetes mellitus without complications Status: Acute Assessment and Plan: Glucose 556 on admission. DM is uncontrolled. A1c 12 Glucose reviewed on 02/08/20 and better controlled overall. Currently on Lantus and NovoLog with meals. Patient refused to take 50 of Lantus with his blood for sugars in the low 100s but did agree to take 40 with the novel log adjusted to 7 with meal and sliding scale. Hopefully his blood sugar will not rise again. Is A1c suggests that his average sugar has been around 300 and obviously needs more insulin. (6) CHF (congestive heart failure): Code(s): I50.9 - Heart failure, unspecified Status: Acute Assessment and Plan: Patient states he has had ejection fraction of 10% in the past. Currently on NS for gentle hydration for renal failure. No evidence of overload clinically. EF by echo here 35-40% with severe pulmonary hypertension estimated 91.. Continue Coreg. His Entresto and diuretic remain on hold due to his renal failure and probable restart diuretic 02/08. (7) Hyponatremia: Code(s): E87.1 - Hypo-osmolality and hyponatremia Status: Acute Assessment and Plan: Sodium low but stable at 124 today. Phi 14 (FENa 0.4) but with underlying renal disease. Currently on NS at 50ml/hr which are stopping. Off diuretics still. Continue to monitor. If not improved may have renal see also (8) DVT prophylaxis: Code(s): Z29.9 - Encounter for prophylactic measures, unspecified Status: Acute Assessment and Plan: Subcu heparin Subjective Date/time seen: 02/08/20 15:30 Interval history: Date of visit 02/07. 48yo male with DM CKD and CHF here for cellulitis and abscess of left hip. States pain is much better after I and D. He complains of feeling constipated still. No CP or SOB. no orthopnea. Exam Narrative: Exam Narrative: AF 106/66 72 afebrile Gen - NARD Chest -clear with decreased breath sounds but no rales CV - RRR S1/S2 no murmur Abd - soft, NT/ND, +BS Ext - no pedal edema, 2+ DP bilaterally Psych - nml mood but odd affect Skin - left lateral thigh/hip dressing clean, dry and intact. Neuro alert oriented no focal deficits Objective Data Vital Signs Vital Signs: Vital Signs - 24 hr 02/07/20 20:28 02/07/20 22:00 02/08/20 06:00 Temperature 36.6 C 36.6 C Pulse Rate 76 71 72 Respiratory R
[2020-02-08] MEDS: CALCIUM CARBONATE (TUMS) 500 MG (200 MG ELEMENTAL) PO (16:43)
[2020-02-08 17:58] LABS: Glucose Point of Care 82 (65-105)
[2020-02-08] MEDS: SILVERGEL (ELTA) 45 ML 1 APPLIC TOPICAL (17:58)
[2020-02-08 20:48] VITALS: PULSE 74
[2020-02-08] MEDS: ATORVASTATIN 40 MG TABLET 80 MG PO (20:48)
[2020-02-08] MEDS: TAMSULOSIN HCL 0.4 MG CAPSULE PO (20:48)
[2020-02-08 21:04] LABS: Glucose Point of Care 164 (65-105)
[2020-02-08] MEDS: ACETAMINOPHEN 325 MG TABLET 650 MG PO (21:04)
[2020-02-08 22:00] VITALS: BP 114/67; PULSE 72; RESP 18; TEMP 36.7; O2SAT 95
[2020-02-09] MEDS: IMIPENEM/CILASTATIN SODIUM 250 MG in DEXTROSE 5% 100 ML 300 MG IVPB ×3 (05:28→17:24)
[2020-02-09 06:00] VITALS: BP 103/60; PULSE 64; RESP 18; TEMP 36.7; O2SAT 99
[2020-02-09 06:14] LABS: Basophils Percent Auto 0.2 % (0.2-1.2); Eosinophils Absolute Auto 0.3 K/mm3 (0-0.3); Eosinophils Percent Auto 3.1 % (0-4.4); Hematocrit 24.8 % (42.0-52.0); Hemoglobin 8.5 g/dL (14.0-18.0); Immature Granulocyte Absolute 0.06 K/mm3 (0.00-0.031); Immature Granulocyte Percent A 0.7 % (0-0.5); Lymphocytes Absolute Auto 0.72 K/mm3 (0.9-3.2); Lymphocytes Percent Auto 8.9 % (18.3-44.2); Mean Corpuscular HGB Conc 34.3 g/dl (32-36); Mean Corpuscular Volume 81.6 fl (80-100); Monocytes Absolute Auto 0.8 K/mm3 (0.1-0.6); Monocytes Percent Auto 9.8 % (2.6-8.5); Neutrophils Absolute Auto 6.2 K/mm3 (1.3-6.7); Neutrophils Percent Auto 77.3 % (45.5-73.1); Platelet Count Result 190 k/mm3 (150-375); Red Blood Count 3.04 M/mm3 (4.6-6.20); Red Cell Distribution Width 14.6 % (11.5-14.5); White Blood Count 8.1 K/mm3 (4.5-10.0)
[2020-02-09 06:26] LABS: Blood Urea Nitrogen 88 mg/dL (9-20); Calcium 8.3 mg/dL (8.4-10.2); Carbon Dioxide 21 mmol/L (22-30); Chloride 95 mmol/L (98-107); Estimated CRCL calculation 29 ml/min; Estimated Glomerular Filt Rate 26; Glucose 123 mg/dL (75-110); Potassium 4.4 mmol/L (3.4-5.0); Sodium 124 mmol/L (137-145)
[2020-02-09 08:28] VITALS: PULSE 64
[2020-02-09] MEDS: carvediloL 6.25 MG TABLET 18.75 MG PO ×2 (08:28→21:43)
[2020-02-09] MEDS: CHOLECALCIFEROL 1,000 UNIT TABLET 1000 UNITS PO (08:28)
[2020-02-09] MEDS: CLOPIDOGREL BISULFATE 75 MG TABLET PO (08:28)
[2020-02-09] MEDS: FINASTERIDE 5 MG TABLET PO (08:28)
[2020-02-09] MEDS: ASPIRIN 81 MG ENTERIC TABLET PO (08:29)
[2020-02-09] MEDS: THERAPEUTIC MULTIVITAMINS/MINERALS TAB (*BKC) 1 TABLET PO (08:29)
[2020-02-09] MEDS: DOCUSATE SODIUM 100 MG CAPSULE PO ×2 (08:30→21:43)
[2020-02-09 09:36] LABS: Cortisol Random 8.66 ug/dL
[2020-02-09] MEDS: INSULIN GLARGINE (*BKC) 100 UNITS/ML 40 UNITS SUB-Q (10:21)
[2020-02-09] MEDS: INSULIN ASPART (*BKC) 100 UNITS/ML 7 UNITS SUB-Q ×2 (10:21→12:43)
[2020-02-09 10:28] LABS: Glucose Point of Care 117 (65-105)
--- NOTE | 2020-02-09 10:30 | PCPTNOTE ---
Patient requests PT return later due to c/o LE wound discomfort.
--- NOTE | 2020-02-09 10:52 | PCOTNOTE ---
Attempted to see patient this am, however patient declined. Pt upset at this time, and notified nursing of patient concerns.
[2020-02-09] MEDS: SILVERGEL (ELTA) 45 ML 1 APPLIC TOPICAL (11:07)
[2020-02-09] MEDS: BISACODYL 5 MG TABLET EC PO (11:07)
[2020-02-09] MEDS: EUCERIN CREAM 120 GM JAR 1 APPLIC TOPICAL ×2 (11:07→17:32)
[2020-02-09] MEDS: polyethylene glycoL 3350 17 GM POWD.PACK PO ×2 (11:07→17:32)
[2020-02-09 12:48] LABS: Glucose Point of Care 141 (65-105)
[2020-02-09 14:00] VITALS: BP 106/59; PULSE 63; RESP 16; TEMP 36.7; O2SAT 100
--- NOTE | 2020-02-09 14:49 | PM.IMPN ---
Progress Note: A&P Assessment and Plan (1) Cellulitis: Qualifiers: Laterality: left Site of cellulitis: extremity Site of cellulitis of extremity: lower extremity Qualified Code(s): L03.116 - Cellulitis of left lower limb Code(s): L03.90 - Cellulitis, unspecified Status: Acute Assessment and Plan: Cellulitis of the left lep with abscess. CT did not reveal any abscess cavity but surgery I and D the area with drainage of purulent material on 02/07/20 (POD #3). BCx NGTD. WBC trending down and no fevers.. Continue Primaxin and Vanco D#5. And local care. (2) Renal failure (ARF), acute on chronic: Code(s): N17.9 - Acute kidney failure, unspecified; N18.9 - Chronic kidney disease, unspecified Status: Acute Assessment and Plan: Assumed acute on chronic but Cr relatively unchanged since admission. Could be acute related to the infection. stopped IV fluids 02/07. renal US no hydro. Nephrology opinion (3) Elevated troponin: Code(s): R79.89 - Other specified abnormal findings of blood chemistry Status: Acute Assessment and Plan: Trop elevated at 0.11 but flat. EKG showing high lateral T wave inversions. He has hx of CAD. EF 35-40 % no acute ischemic event (4) Anemia: Code(s): D64.9 - Anemia, unspecified Status: Acute Assessment and Plan: Anemia noted on admission . Most likely anemia of chronic disease given iron studies. Continue to monitor. hgb 8.5 again today (5) Diabetes: Code(s): E11.9 - Type 2 diabetes mellitus without complications Status: Acute Assessment and Plan: Glucose 556 on admission. DM is uncontrolled. A1c 12 Glucose reviewed on 02/09/20 and better controlled overall. Currently on Lantus and NovoLog with meals. Patient FBS 123 with lantus 40 qd and novolog 6 units with meal and sliding scale. A1c suggests that his average sugar has been around 300 and obviously needs more insulin. (6) CHF (congestive heart failure): Code(s): I50.9 - Heart failure, unspecified Status: Acute Assessment and Plan: .was on NS for gentle hydration for renal failure stopped 02/07. No evidence of overload clinically. EF by echo here 35-40% with severe pulmonary hypertension estimated 91.. Continue Coreg. His Entresto and diuretic remain on hold due to his renal failure and probable restart diuretic soon with renal input. (7) Hyponatremia: Code(s): E87.1 - Hypo-osmolality and hyponatremia Status: Acute Assessment and Plan: Sodium low but stable at 124 today. Phi 14 (FENa 0.4) but with underlying renal disease. Stopped NS infusion 02/07 Off diuretics still. Continue to monitor. TSH slightly elevated at 9.4 so start levothyroxine. [place] cortisol 8.66 (8) DVT prophylaxis: Code(s): Z29.9 - Encounter for prophylactic measures, unspecified Status: Acute Assessment and Plan: Subcu heparin Subjective Date/time seen: 02/09/20 14:49 Interval history: Date of visit 02/08. 48yo male with DM CKD and CHF here for cellulitis and abscess of left hip. States pain is much better after I and D. He complains of still feeling constipated , no bm for 3-4 days. No CP or SOB. no orthopnea. Exam Narrative: Exam Narrative: AF 106/60 62 afebrile Gen - NARD Chest -clear with decreased breath sounds but no rales CV - RRR S1/S2 no murmur Abd - soft, NT/ND, +BS Ext - no pedal edema, 2+ DP bilaterally Psych - nml mood but odd affect Skin - left lateral thigh/hip dressing clean, dry and intact.still packing wound Neuro alert oriented no focal deficits Objective Data Vital Signs Vital Signs: Vital Signs - 24 hr 02/08/20 20:48 02/08/20 22:00 02/09/20 06:00 Temperature 36.7 C 36.7 C Pulse Rate 74 72 64 Respiratory Rate 18 18 Blood Pressure 114/67 103/60 Pulse Oximetry 95 99 02/09/20 08:28 02/09/20 14:00 [place]
--- NOTE | 2020-02-09 15:05 | PCPTNOTE ---
Attempted to see patient in A.M. and P.M.. Patient declined both attempts and asked that PT return later.
--- NOTE | 2020-02-09 16:45 | PM.CNNEP ---
Assessment and Plan Assessment and plan (1) Renal failure (ARF), acute on chronic: Code(s): N17.9 - Acute kidney failure, unspecified; N18.9 - Chronic kidney disease, unspecified Status: Acute (2) Hyponatremia: Code(s): E87.1 - Hypo-osmolality and hyponatremia Status: Acute (3) Abscess of left thigh: Code(s): L02.416 - Cutaneous abscess of left lower limb Status: Acute (4) Diabetes: Code(s): E11.9 - Type 2 diabetes mellitus without complications Status: Acute (5) Anemia: Code(s): D64.9 - Anemia, unspecified Status: Acute Assessment and Plan: . Additional Plan Prabhu apparently has chronic kidney disease based on his last hospitalization at [facility] although the specifics of his renal dysfunction or not entirely clear to me. The assumption is that his creatinine is somewhat worse than baseline at this time. I will try to obtain records from [facility] particularly with his information regarding his last hospitalization to [facility] to assess how far off we are with regard to his kidney function in general. The patient's hyponatremia may be related to his worsening renal dysfunction or this may be a chronic issue in of itself. I would follow up on his urine electrolytes as well as UPEP and SPEP. His TSH is a little bit elevated so he has already been started on levothyroxine as cortisol level appears to be relatively stable. For completeness sake I will check an extensive serological evaluation with regard to complements, SPEP, UPEP, kappa lambda ratio, Anca, SAGAR, anti-GBM antibody...etc. His renal his renal ultrasound is unremarkable at this time. I will time it obtain records from [facility] to assess where his current kidney function normally runs as well as further assessment of whether any other evaluation was done with regard to his renal insufficiency. I will continue follow patient with you while remains hospitalized and make further recommendations based on his hospital course. Thank you for allowing me to participate in the care this patient. History of Present Illness Reason for Consult Consult date: 02/10/20 Reason for consult: hyponatremia and Other (renal failure) Chief Complaint Chief complaint: Left thigh abscess History of Present Illness Narrative: The patient is a 54 year old male with a past medical history as outlined below who presented to the emergency room by ambulance from nursing facility with complaints of weakness and pain of his left hip. I am not entirely clear how long the patient has weakness or his left hip pain was present but given the ongoing complaints of these 2 issues, he was transferred to by his nursing facility for further evaluation. Workup and evaluation in the emergency room demonstrated the patient to clinically appear to be dehydrated in conjunction with his hyperglycemia and what appeared to be a left hip abscess. Routine blood tests also demonstrated an elevated BUN and creatinine although his exact baseline kidney functions unclear although by report he does have a history of chronic kidney disease. He was subsequently started on IV antibiotic therapy as well as IV fluids and admitted to the hospital for further evaluation and therapy Since admission, he has been receiving IV fluids with minimal change or improvement in his kidney function and somewhat surprisingly also, his sodium level appears to be somewhat depressed as well. His sodium, much like his renal function has not changed significantly despite IV fluid resuscitation. He apparently had some issues with renal dysfunction during his last hospitalization at [facility] in association with a right axilla abscess and anasarca/volume overload. Renal consultation was requested due to the fact that his hyponatremia and renal dysfunction did not appear to normalize following his most recent hospital stay. As I mentioned, he d
[2020-02-09] MEDS: BISACODYL 5 MG TABLET EC 10 MG PO (17:55)
[2020-02-09 21:43] VITALS: PULSE 63
[2020-02-09] MEDS: ATORVASTATIN 40 MG TABLET 80 MG PO (21:43)
[2020-02-09] MEDS: TAMSULOSIN HCL 0.4 MG CAPSULE PO (21:44)
[2020-02-09 22:00] VITALS: BP 113/69; PULSE 69; RESP 18; TEMP 36.6; O2SAT 96
[2020-02-09 22:46] LABS: Glucose Point of Care 130 (65-105)
[2020-02-09 22:58] LABS: Creatinine Urine 55.6 mg/dL; Total Protein Urine Random 103 mg/dL
[2020-02-09 23:06] LABS: Sodium Urine Random 8 meq/L
[2020-02-09] MEDS: IMIPENEM/CILASTATIN SODIUM 250 MG in DEXTROSE 5% 100 ML 100 MG IVPB (23:59)
[2020-02-10 02:12] LABS: Glucose Point of Care 70 (65-105)
[2020-02-10 04:24] LABS: Osmolality, Urine 324 mOsm/kg (50-1200)
[2020-02-10 06:00] VITALS: BP 105/61; PULSE 68; RESP 18; TEMP 36.1; O2SAT 98
[2020-02-10] MEDS: IMIPENEM/CILASTATIN SODIUM 250 MG in DEXTROSE 5% 100 ML 150 MG IVPB (06:11)
[2020-02-10 08:14] LABS: Basophils Percent Auto 0.2 % (0.2-1.2); Eosinophils Absolute Auto 0.2 K/mm3 (0-0.3); Hematocrit 26.4 % (42.0-52.0); Hemoglobin 9.2 g/dL (14.0-18.0); Immature Granulocyte Absolute 0.08 K/mm3 (0.00-0.031); Immature Granulocyte Percent A 0.9 % (0-0.5); Lymphocytes Absolute Auto 0.56 K/mm3 (0.9-3.2); Lymphocytes Percent Auto 6.3 % (18.3-44.2); Mean Corpuscular HGB Conc 34.8 g/dl (32-36); Mean Corpuscular Hemoglobin 28.3 pg (26-34); Mean Corpuscular Volume 81.2 fl (80-100); Mean Platelet Volume 9.6 fl (7.4-10.4); Monocytes Absolute Auto 0.6 K/mm3 (0.1-0.6); Neutrophils Absolute Auto 7.4 K/mm3 (1.3-6.7); Neutrophils Percent Auto 83.6 % (45.5-73.1); Platelet Count Result 219 k/mm3 (150-375); Red Blood Count 3.25 M/mm3 (4.6-6.20); Red Cell Distribution Width 14.6 % (11.5-14.5); White Blood Count 8.8 K/mm3 (4.5-10.0)
[2020-02-10 08:22] LABS: Glucose Point of Care 111 (65-105)
[2020-02-10 08:25] LABS: Albumin Level 2.7 g/dL (3.5-5.1); Blood Urea Nitrogen 87 mg/dL (9-20); Carbon Dioxide 18 mmol/L (22-30); Chloride 97 mmol/L (98-107); Estimated CRCL calculation 33 ml/min; Estimated Glomerular Filt Rate 30; Glucose 122 mg/dL (75-110); Phosphorus 5.5 mg/dL (2.5-4.5); Potassium 4.5 mmol/L (3.4-5.0); Sodium 126 mmol/L (137-145)
[2020-02-10] MEDS: CLOPIDOGREL BISULFATE 75 MG TABLET PO (08:27)
[2020-02-10] MEDS: FINASTERIDE 5 MG TABLET PO (08:27)
[2020-02-10] MEDS: ASPIRIN 81 MG ENTERIC TABLET PO (08:27)
[2020-02-10] MEDS: CHOLECALCIFEROL 1,000 UNIT TABLET 1000 UNITS PO (08:27)
[2020-02-10] MEDS: DOCUSATE SODIUM 100 MG CAPSULE PO ×2 (08:27→21:47)
[2020-02-10] MEDS: polyethylene glycoL 3350 17 GM POWD.PACK 34 GM PO ×2 (08:27→18:19)
[2020-02-10] MEDS: THERAPEUTIC MULTIVITAMINS/MINERALS TAB (*BKC) 1 TABLET PO (08:27)
[2020-02-10 08:28] VITALS: PULSE 76
[2020-02-10] MEDS: carvediloL 6.25 MG TABLET 18.75 MG PO ×2 (08:28→21:47)
[2020-02-10] MEDS: LEVOTHYROXINE SODIUM 50 MCG TABLET PO (08:28)
[2020-02-10] MEDS: SILVERGEL (ELTA) 45 ML 1 APPLIC TOPICAL (08:29)
[2020-02-10] MEDS: EUCERIN CREAM 120 GM JAR 1 APPLIC TOPICAL ×2 (08:29→18:20)
[2020-02-10 08:33] LABS: Complement C3 101 mg/dL (88-165)
[2020-02-10 09:03] LABS: Vancomycin Trough 22.5 ug/mL (10.0-20.0)
[2020-02-10 09:10] LABS: Hepatitis B Surface Antigen Negative (Negative)
[2020-02-10] MEDS: INSULIN GLARGINE (*BKC) 100 UNITS/ML 36 UNITS SUB-Q (09:12)
[2020-02-10 09:16] LABS: HAV RESULT Negative (Negative); Hepatitis B Core IgM Result Negative (Negative)
[2020-02-10 09:28] LABS: Hepatitis C Virus Antibody Negative (Negative)
--- NOTE | 2020-02-10 09:59 | PCOTNOTE ---
Attempted to see patient this pm, however patient declined. Not right now. Maybe later. I still feel like a truck hit me.
--- NOTE | 2020-02-10 11:05 | PM.PNNEP ---
Progress Note: A&P Assessment and Plan (1) Renal failure (ARF), acute on chronic: Code(s): N17.9 - Acute kidney failure, unspecified; N18.9 - Chronic kidney disease, unspecified Status: Acute Assessment and Plan: The patient has chronic kidney disease. Renal ultrasound is normal. Urinalysis shows protein and glucose. He has got some red blood cells as well. Urine electrolytes are pending Serology and electrophoresis are pending This could be due to diabetes, chronic vascular disease, and chronic use of loop diuretics. The patient has acute kidney injury. This is probably due to the thigh abscess and some pre renal factors. he is off his diuretics. (2) Hyponatremia: Code(s): E87.1 - Hypo-osmolality and hyponatremia Status: Acute Assessment and Plan: Hyponatremia. Most likely due to diuretics. Sodium level is a little bit better. (3) Abscess of left thigh: Code(s): L02.416 - Cutaneous abscess of left lower limb Status: Acute Assessment and Plan: On antibiotics and local wound care. (4) Diabetes: Code(s): E11.9 - Type 2 diabetes mellitus without complications Status: Acute Assessment and Plan: On Accu-Cheks and sliding-scale insulin. (5) Anemia: Code(s): D64.9 - Anemia, unspecified Status: Acute Assessment and Plan: . Will start EPO. Additional Plan Subjective Date/time seen: 02/10/20 11:05 Interval history: Patient feels better. After the abscess was drained his pain has gone away. It is a little uncomfortable because of the location. Review of Systems Cardiovascular: Cardiovascular: Reports no additional cardiovascular complaints Respiratory: Respiratory: Reports no additional respiratory complaints Gastrointestinal: Gastrointestinal: Reports no additional gastrointestinal complaints Genitourinary: Genitourinary: Reports no additional male genitourinary complaints Exam Narrative: Exam Narrative: WDWN in NAD skin no rash head ncat lungs clear cor reg no rub abd BS+ nontender and soft ext no edema. Objective Data Vital Signs Vital Signs: Vital Signs - 24 hr 02/09/20 14:00 02/09/20 21:43 02/09/20 22:00 Temperature 36.7 C 36.6 C Pulse Rate 63 63 69 Respiratory Rate 16 18 Blood Pressure 106/59 L 113/69 Pulse Oximetry 100 96 02/10/20 06:00 02/10/20 08:28 Temperature 36.1 C L Pulse Rate 68 76 Respiratory Rate 18 Blood Pressure 105/61 Pulse Oximetry 98 Intake/Output Intake/Output: Intake & Output 02/07/20 02/08/20 02/09/20 02/10/20 23:59 23:59 23:59 23:59 Intake Total 3290 3670 1260 220 Output Total 1100 550 700 Balance 2190 3120 1260 -480 Meds/Results Medications: Active Medications Generic Name Dose Route Start Last Admin Trade Name Freq PRN Reason Stop Dose Admin Acetaminophen 650 mg 02/05/20 08:36 02/08/20 21:04 Tylenol Tablet PO 650 mg QID PRN Administration Pain (Scale Score 1-3) Hydrocodone Bitart/Acetaminophen 1 tab 02/05/20 09:01 02/09/20 00:17 [place] 5-325 Mg PO 1 tab Q6H PRN Administration Pain Rated 4-6 Aspirin 81 mg 02/05/20 09:00 02/10/20 08:27 Aspirin Ec PO 81 mg DAILY DAVIAN Administration Atorvastatin Calcium 80 mg 02/05/20 21:00 02/09/20 21:43 Lipitor PO 80 mg HS DAVIAN Administration Calcium Carbonate 200 mg 02/06/20 21:50 02/08/20 16:43 Tums PO 200 mg Q6H PRN Administration Indigestion Carvedilol 18.75 mg 02/05/20 09:00 02/10/20 08:28 Coreg PO 18.75 mg Q12HR DAVIAN Administration Clopidogrel Bisulfate 75 mg 02/05/20 09:00 02/10/20 08:27 Plavix PO 75 mg DAILY DAVIAN Administration Dextrose 12.5 gm 02/05/20 08:39 Dextrose 50% Syringe IV PUSH PRN PRN Hypoglycemia Protocol Docusate Sodium 100 mg 02/07/20 21:00 02/10/20 08:27 Colace Capsule PO 100 mg Q12HR DAVIAN Administration Finasteride 5 mg 0
[2020-02-10 12:08] LABS: Glucose Point of Care 191 (65-105)
[2020-02-10] MEDS: IMIPENEM/CILASTATIN SODIUM 250 MG in DEXTROSE 5% 100 ML 300 MG IVPB ×3 (13:07→23:47)
[2020-02-10 13:10] LABS: SARS-CoV-2 RNA PCR Negative
[2020-02-10] MEDS: INSULIN ASPART (*BKC) 100 UNITS/ML 6 UNITS SUB-Q ×2 (13:13→18:19)
[2020-02-10] MEDS: EPOETIN ALFA 10,000 UNITS/ML VIAL 10000 UNITS SUB-Q (13:18)
[2020-02-10 14:00] VITALS: BP 108/63; PULSE 72; RESP 18; TEMP 36.6; O2SAT 99
[2020-02-10 17:26] LABS: Glucose Point of Care 144 (65-105)
--- NOTE | 2020-02-10 17:35 | PM.IMPN ---
Progress Note: A&P Assessment and Plan (1) Cellulitis: Qualifiers: Laterality: left Site of cellulitis: extremity Site of cellulitis of extremity: lower extremity Qualified Code(s): L03.116 - Cellulitis of left lower limb Code(s): L03.90 - Cellulitis, unspecified Status: Acute Assessment and Plan: Cellulitis of the left lep with abscess. CT did not reveal any abscess cavity but surgery I and D the area with drainage of purulent material on 02/07/20 (POD #4). BCx Negative. WBC normal and no fevers.. Continue Primaxin and Vanco D#6. Continue current topical care. (2) Renal failure (ARF), acute on chronic: Code(s): N17.9 - Acute kidney failure, unspecified; N18.9 - Chronic kidney disease, unspecified Status: Acute Assessment and Plan: Assumed acute on chronic renal disease. Creatinine relatively stable but but now down to 2.3. Could be acute related to the infection. IV fluids stopped 02/07. Renal US no hydro. Appreciate Nephrology input. (3) Elevated troponin: Code(s): R79.89 - Other specified abnormal findings of blood chemistry Status: Acute Assessment and Plan: Trop elevated at 0.11 but flat. EKG showing high lateral T wave inversions. He has hx of CAD. EF 35-40 %. No acute ischemic event (4) Anemia: Code(s): D64.9 - Anemia, unspecified Status: Acute Assessment and Plan: Anemia noted on admission hemoglobin 10.3. Hemoglobin since admission has been running in the 8-9 range and stable. Most likely anemia of chronic disease given iron studies. Continue to monitor. (5) Diabetes: Code(s): E11.9 - Type 2 diabetes mellitus without complications Status: Acute Assessment and Plan: Glucose 556 on admission. DM is uncontrolled. A1c 12 Glucose reviewed on 02/10/20 and better controlled overall. Currently on Lantus and NovoLog with meals. Lantus dose has been decreased. Continue to monitor. (6) CHF (congestive heart failure): Code(s): I50.9 - Heart failure, unspecified Status: Acute Assessment and Plan: Was on NS for gentle hydration for renal failure but stopped 02/07. Pedal edema noted today. Lungs clear. EF by echo here 35-40% with severe pulmonary hypertension estimated 91. Continue Coreg. His Entresto and diuretic remain on hold due to his renal failure. Continue to monitor. Daily weights. (7) Hyponatremia: Code(s): E87.1 - Hypo-osmolality and hyponatremia Status: Acute Assessment and Plan: Sodium better at 126 today. Phi 8 but with underlying renal disease. Stopped NS infusion 02/07 and diuretics remain on hold. Random cortisol level 8.6. TSH slightly elevated at 9.4 so levothyroxine started. Continue to monitor. (8) DVT prophylaxis: Code(s): Z29.9 - Encounter for prophylactic measures, unspecified Status: Acute Assessment and Plan: Subcu heparin stopped. Add SCDs. Subjective Date/time seen: 02/10/20 17:35 Interval history: Date of visit 02/09 48yo male with DM CKD and CHF here for cellulitis and abscess of left hip. No complaints today. Slept well. Hip pain is better controlled. No chest pain or shortness of breath Exam Narrative: Exam Narrative: AF 108/63 Gen - NARD Chest -clear with decreased breath sounds but no rales CV - RRR S1/S2 Abd - soft, NT/ND, +BS Ext - 1+ pedal edema Skin - left lateral thigh wound is dime-sized irregular she with whitish base and surrounding resolving erythema Psych -pleasant and cooperative. Objective Data Vital Signs Vital Signs: Vital Signs - 24 hr 02/09/20 21:43 02/09/20 22:00 02/10/20 06:00 Temperature 97.9 F 97.0 F L Pulse Rate 63 69 68 Respiratory Rate 18 18 Blood Pressure 113/69 105/61 Pulse Oximetry 96 98 02/10/20 08:28 02/10/20 14:00 Temperature 97.8 F Pulse Rate 76 72 Respiratory Rate 18 Blood Pressure 108/63 Pulse Oximetry 99
[2020-02-10 21:47] VITALS: PULSE 72
[2020-02-10] MEDS: TAMSULOSIN HCL 0.4 MG CAPSULE PO (21:47)
[2020-02-10] MEDS: ATORVASTATIN 40 MG TABLET 80 MG PO (21:48)
[2020-02-10 22:00] VITALS: BP 109/66; PULSE 69; RESP 18; TEMP 36.3; O2SAT 99
[2020-02-10 22:07] LABS: Glucose Point of Care 142 (65-105)
[2020-02-11 05:00] LABS: Glucose Point of Care 99 (65-105)
[2020-02-11] MEDS: LEVOTHYROXINE SODIUM 50 MCG TABLET PO (06:23)
[2020-02-11] MEDS: IMIPENEM/CILASTATIN SODIUM 250 MG in DEXTROSE 5% 100 ML 300 MG IVPB ×3 (06:23→17:44)
[2020-02-11 07:55] LABS: Basophils Percent Auto 0.3 % (0.2-1.2); Eosinophils Absolute Auto 0.2 K/mm3 (0-0.3); Eosinophils Percent Auto 1.9 % (0-4.4); Hematocrit 25.5 % (42.0-52.0); Hemoglobin 8.7 g/dL (14.0-18.0); Immature Granulocyte Absolute 0.06 K/mm3 (0.00-0.031); Immature Granulocyte Percent A 0.7 % (0-0.5); Lymphocytes Percent Auto 6.9 % (18.3-44.2); Mean Corpuscular HGB Conc 34.1 g/dl (32-36); Mean Corpuscular Hemoglobin 27.8 pg (26-34); Mean Corpuscular Volume 81.5 fl (80-100); Mean Platelet Volume 9.7 fl (7.4-10.4); Monocytes Absolute Auto 0.6 K/mm3 (0.1-0.6); Monocytes Percent Auto 6.9 % (2.6-8.5); Neutrophils Absolute Auto 7.3 K/mm3 (1.3-6.7); Neutrophils Percent Auto 83.3 % (45.5-73.1); Platelet Count Result 238 k/mm3 (150-375); Red Blood Count 3.13 M/mm3 (4.6-6.20); Red Cell Distribution Width 14.8 % (11.5-14.5); White Blood Count 8.8 K/mm3 (4.5-10.0)
[2020-02-11 08:09] LABS: Albumin Level 2.8 g/dL (3.5-5.1); Blood Urea Nitrogen 85 mg/dL (9-20); Calcium 8.4 mg/dL (8.4-10.2); Carbon Dioxide 20 mmol/L (22-30); Chloride 98 mmol/L (98-107); Estimated CRCL calculation 34 ml/min; Estimated Glomerular Filt Rate 31; Glucose 127 mg/dL (75-110); Phosphorus 5.2 mg/dL (2.5-4.5); Potassium 4.8 mmol/L (3.4-5.0); Sodium 127 mmol/L (137-145)
[2020-02-11] MEDS: INSULIN ASPART (*BKC) 100 UNITS/ML 6 UNITS SUB-Q ×3 (08:39→17:42)
[2020-02-11] MEDS: INSULIN GLARGINE (*BKC) 100 UNITS/ML 36 UNITS SUB-Q (08:40)
[2020-02-11] MEDS: ASPIRIN 81 MG ENTERIC TABLET PO (08:42)
[2020-02-11 08:43] VITALS: PULSE 75
[2020-02-11] MEDS: carvediloL 6.25 MG TABLET 18.75 MG PO ×2 (08:43→22:45)
[2020-02-11] MEDS: THERAPEUTIC MULTIVITAMINS/MINERALS TAB (*BKC) 1 TABLET PO (08:46)
[2020-02-11] MEDS: polyethylene glycoL 3350 17 GM POWD.PACK 34 GM PO (08:46)
[2020-02-11] MEDS: EUCERIN CREAM 120 GM JAR 1 APPLIC TOPICAL ×2 (08:46→17:44)
[2020-02-11] MEDS: FINASTERIDE 5 MG TABLET PO (08:46)
[2020-02-11] MEDS: CHOLECALCIFEROL 1,000 UNIT TABLET 1000 UNITS PO (08:46)
[2020-02-11] MEDS: DOCUSATE SODIUM 100 MG CAPSULE PO ×2 (08:46→22:45)
[2020-02-11] MEDS: CLOPIDOGREL BISULFATE 75 MG TABLET PO (08:46)
[2020-02-11] MEDS: SILVERGEL (ELTA) 45 ML 1 APPLIC TOPICAL (08:47)
[2020-02-11 08:53] LABS: Glucose Point of Care 115 (65-105)
--- NOTE | 2020-02-11 10:46 | PM.IMPN ---
Progress Note: A&P Assessment and Plan (1) Cellulitis: Qualifiers: Laterality: left Site of cellulitis: extremity Site of cellulitis of extremity: lower extremity Qualified Code(s): L03.116 - Cellulitis of left lower limb Code(s): L03.90 - Cellulitis, unspecified Status: Acute Assessment and Plan: Cellulitis of the left lep with abscess. CT did not reveal any abscess cavity but surgery I and D the area with drainage of purulent material on 02/06/20 (POD #5). BCx Negative. WBC normal and no fevers.. Continue Primaxin and Vanco D#7. Continue current wound care. (2) Renal failure (ARF), acute on chronic: Code(s): N17.9 - Acute kidney failure, unspecified; N18.9 - Chronic kidney disease, unspecified Status: Acute Assessment and Plan: Acute on chronic renal disease. Creatinine slowly improving and now down to 2.2. Could be acute related to the infection. IV fluids stopped 02/07. Renal US showing normal sized kidneys without hydronephrosis. Diurectics to resume today. Monitor closely back on diuretics. Appreciate Nephrology input. (3) Elevated troponin: Code(s): R79.89 - Other specified abnormal findings of blood chemistry Status: Acute Assessment and Plan: Trop elevated at 0.11 but flat. EKG showing high lateral T wave inversions. He has hx of CAD. EF 35-40%. Not felt that this was an acute ischemic event. (4) Anemia: Code(s): D64.9 - Anemia, unspecified Status: Acute Assessment and Plan: Anemia noted on admission with hemoglobin 10.3. Hemoglobin since admission has been running in the 8-9 range and stable. Most likely anemia of chronic disease given iron studies. Could have component of dilution. Continue to monitor. (5) Diabetes: Code(s): E11.9 - Type 2 diabetes mellitus without complications Status: Acute Assessment and Plan: Glucose 556 on admission. DM is uncontrolled. A1c 12 Glucose reviewed on 02/11/20 and well controlled overall. Currently on Lantus and NovoLog with meals. Lantus dose has been decreased. Continue to monitor. (6) CHF (congestive heart failure): Code(s): I50.9 - Heart failure, unspecified Status: Acute Assessment and Plan: Was on NS for gentle hydration for renal failure but stopped 02/07. Pedal edema persistent. EF by echo here 35-40% with severe pulmonary hypertension estimated 91. Continue Coreg. His Entresto remain on hold due to his renal failure. Plan to resume diurectics today. Continue to monitor. Daily weights. (7) Hyponatremia: Code(s): E87.1 - Hypo-osmolality and hyponatremia Status: Acute Assessment and Plan: Sodium improving slowly and now up to 127 today. Phi 8 but with underlying renal disease. Stopped NS infusion 02/07. Random cortisol level 8.6. TSH slightly elevated at 9.4 so levothyroxine started. Discussed with Dr Salas with plans to start back diuretics today. Continue to monitor. (8) DVT prophylaxis: Code(s): Z29.9 - Encounter for prophylactic measures, unspecified Status: Acute Assessment and Plan: SCDs. Subjective Date/time seen: 02/11/20 10:46 Interval history: Date of visit 02/10 48yo male with DM CKD and CHF here for cellulitis and abscess of left hip. Slept well. No leg pain today. No CP or SOB. No cough. No n/v. Good UOP. Exam Narrative: Exam Narrative: 109/66 69 Gen - NARD sitting up in chair Chest - CTA bilaterally, nml RR CV - RRR S1/S2 Abd - soft, firm but not tense, Ext - bilateral 1+ pedal edema Skin - left lateral thigh wound dressing clean and dry Psych - pleasant and cooperative. Objective Data Vital Signs Vital Signs: Vital Signs - 24 hr 02/10/20 14:00 02/10/20 21:47 02/10/20 22:00 Temperature 97.8 F 97.3 F L Pulse Rate 72 72 69 Respiratory Rate 18 18 Blood Pressure 108/63 109/66 Pulse Oximetry 99 99
--- NOTE | 2020-02-11 12:09 | PM.PNNEP ---
Progress Note: A&P Assessment and Plan (1) Renal failure (ARF), acute on chronic: Code(s): N17.9 - Acute kidney failure, unspecified; N18.9 - Chronic kidney disease, unspecified Status: Acute Assessment and Plan: The patient has chronic kidney disease. Renal ultrasound is normal. Urinalysis shows protein and glucose. He has got some red blood cells as well. Urine electrolytes are show pre renal azotemia. Urine protein is a bit high at about 2000. Serology and electrophoresis are pending This could be due to diabetes, chronic vascular disease, and chronic use of loop diuretics. The patient has acute kidney injury. This is probably due to the thigh abscess and some pre renal factors. His swelling has returned. Will restart diuretics. (2) Hyponatremia: Code(s): E87.1 - Hypo-osmolality and hyponatremia Status: Acute Assessment and Plan: Hyponatremia. Most likely due to diuretics. Sodium level is about the same. At fluid restriction (3) Abscess of left thigh: Code(s): L02.416 - Cutaneous abscess of left lower limb Status: Acute Assessment and Plan: On antibiotics and local wound care. (4) Diabetes: Code(s): E11.9 - Type 2 diabetes mellitus without complications Status: Acute Assessment and Plan: On Accu-Cheks and sliding-scale insulin. (5) Anemia: Code(s): D64.9 - Anemia, unspecified Status: Acute Assessment and Plan: On EPO. Additional Plan Subjective Date/time seen: 02/11/20 12:09 Interval history: Patient feels better. Resting comfortably in bed. Review of Systems Cardiovascular: Cardiovascular: Reports no additional cardiovascular complaints Respiratory: Respiratory: Reports no additional respiratory complaints Gastrointestinal: Gastrointestinal: Reports no additional gastrointestinal complaints Genitourinary: Genitourinary: Reports no additional male genitourinary complaints Exam Narrative: Exam Narrative: WDWN in NAD skin no rash or subcu nodules head ncat lungs clear bilaterally cor reg no rub abd BS+ nontender and soft ext no edema. Objective Data Vital Signs Vital Signs: Vital Signs - 24 hr 02/10/20 14:00 02/10/20 21:47 02/10/20 22:00 Temperature 36.6 C 36.3 C L Pulse Rate 72 72 69 Respiratory Rate 18 18 Blood Pressure 108/63 109/66 Pulse Oximetry 99 99 02/11/20 08:43 Temperature Pulse Rate 75 Respiratory Rate Blood Pressure Pulse Oximetry Intake/Output Intake/Output: Intake & Output 02/08/20 02/09/20 02/10/20 02/11/20 23:59 23:59 23:59 23:59 Intake Total 3670 1260 1010 720 Output Total 550 700 Balance 3120 1260 310 720 Meds/Results Medications: Active Medications Generic Name Dose Route Start Last Admin Trade Name Freq PRN Reason Stop Dose Admin Acetaminophen 650 mg 02/05/20 08:36 02/08/20 21:04 Tylenol Tablet PO 650 mg QID PRN Administration Pain (Scale Score 1-3) Hydrocodone Bitart/Acetaminophen 1 tab 02/05/20 09:01 02/09/20 00:17 [place] 5-325 Mg PO 1 tab Q6H PRN Administration Pain Rated 4-6 Aspirin 81 mg 02/05/20 09:00 02/11/20 08:42 Aspirin Ec PO 81 mg DAILY DAVIAN Administration Atorvastatin Calcium 80 mg 02/05/20 21:00 02/10/20 21:48 Lipitor PO 80 mg HS DAVIAN Administration Calcium Carbonate 200 mg 02/06/20 21:50 02/08/20 16:43 Tums PO 200 mg Q6H PRN Administration Indigestion Carvedilol 18.75 mg 02/05/20 09:00 02/11/20 08:43 Coreg PO 18.75 mg Q12HR DAVIAN Administration Clopidogrel Bisulfate 75 mg 02/05/20 09:00 02/11/20 08:46 Plavix PO 75 mg DAILY DAVIAN Administration Dextrose 12.5 gm 02/05/20 08:39 Dextrose 50% Syringe IV PUSH PRN PRN Hypoglycemia Protocol Docusate Sodium 100 mg 02/07/20 21:00 02/11/20 08:46 Colace Capsule PO 100 mg Q12HR DAVIAN Administration Epoetin Awais 10,000 un
[2020-02-11 13:01] LABS: Glucose Point of Care 130 (65-105)
[2020-02-11] MEDS: BUMETANIDE 1 MG TABLET PO ×2 (13:01→17:45)
[2020-02-11 14:00] VITALS: BP 108/62; PULSE 72; RESP 20; TEMP 36.5; O2SAT 100
[2020-02-11 18:18] LABS: Glucose Point of Care 129 (65-105)
[2020-02-11 22:00] VITALS: BP 107/66; PULSE 74; RESP 18; TEMP 36.8; O2SAT 99
[2020-02-11 22:45] VITALS: PULSE 80
[2020-02-11] MEDS: ATORVASTATIN 40 MG TABLET 80 MG PO (22:45)
[2020-02-11] MEDS: TAMSULOSIN HCL 0.4 MG CAPSULE PO (22:45)
[2020-02-11 23:07] LABS: Glucose Point of Care 97 (65-105)
[2020-02-12] MEDS: IMIPENEM/CILASTATIN SODIUM 250 MG in DEXTROSE 5% 100 ML 300 MG IVPB ×3 (00:14→12:53)
[2020-02-12 06:00] VITALS: BP 106/68; PULSE 73; RESP 16; TEMP 36.6; O2SAT 97
[2020-02-12] MEDS: LEVOTHYROXINE SODIUM 50 MCG TABLET PO (06:12)
[2020-02-12 06:39] LABS: Basophils Percent Auto 0.1 % (0.2-1.2); Eosinophils Absolute Auto 0.2 K/mm3 (0-0.3); Eosinophils Percent Auto 2.6 % (0-4.4); Hematocrit 24.6 % (42.0-52.0); Hemoglobin 8.3 g/dL (14.0-18.0); Immature Granulocyte Absolute 0.09 K/mm3 (0.00-0.031); Immature Granulocyte Percent A 1.2 % (0-0.5); Lymphocytes Absolute Auto 0.67 K/mm3 (0.9-3.2); Lymphocytes Percent Auto 8.6 % (18.3-44.2); Mean Corpuscular HGB Conc 33.7 g/dl (32-36); Mean Corpuscular Volume 83.1 fl (80-100); Mean Platelet Volume 9.5 fl (7.4-10.4); Monocytes Absolute Auto 0.6 K/mm3 (0.1-0.6); Monocytes Percent Auto 7.3 % (2.6-8.5); Neutrophils Absolute Auto 6.2 K/mm3 (1.3-6.7); Neutrophils Percent Auto 80.2 % (45.5-73.1); Platelet Count Result 225 k/mm3 (150-375); Red Blood Count 2.96 M/mm3 (4.6-6.20); White Blood Count 7.8 K/mm3 (4.5-10.0)
[2020-02-12 06:58] LABS: Albumin Level 2.6 g/dL (3.5-5.1); Blood Urea Nitrogen 85 mg/dL (9-20); Calcium 8.2 mg/dL (8.4-10.2); Carbon Dioxide 21 mmol/L (22-30); Chloride 103 mmol/L (98-107); Estimated CRCL calculation 34 ml/min; Estimated Glomerular Filt Rate 31; Glucose 92 mg/dL (75-110); Phosphorus 5.3 mg/dL (2.5-4.5); Potassium 4.5 mmol/L (3.4-5.0); Sodium 131 mmol/L (137-145)
[2020-02-12 08:39] VITALS: PULSE 80
[2020-02-12] MEDS: carvediloL 6.25 MG TABLET 18.75 MG PO ×2 (08:39→20:36)
[2020-02-12] MEDS: DOCUSATE SODIUM 100 MG CAPSULE PO ×2 (08:39→20:36)
[2020-02-12] MEDS: CHOLECALCIFEROL 1,000 UNIT TABLET 1000 UNITS PO (08:40)
[2020-02-12] MEDS: BUMETANIDE 1 MG TABLET PO (08:40)
[2020-02-12] MEDS: ASPIRIN 81 MG ENTERIC TABLET PO (08:40)
[2020-02-12] MEDS: FINASTERIDE 5 MG TABLET PO (08:40)
[2020-02-12] MEDS: THERAPEUTIC MULTIVITAMINS/MINERALS TAB (*BKC) 1 TABLET PO (08:40)
[2020-02-12] MEDS: CLOPIDOGREL BISULFATE 75 MG TABLET PO (08:40)
[2020-02-12] MEDS: EUCERIN CREAM 120 GM JAR 1 APPLIC TOPICAL ×2 (08:41→17:47)
[2020-02-12] MEDS: SILVERGEL (ELTA) 45 ML 1 APPLIC TOPICAL (08:42)
[2020-02-12 08:47] LABS: Glucose Point of Care 86 (65-105)
--- NOTE | 2020-02-12 11:55 | PM.PNNEP ---
Progress Note: A&P Assessment and Plan (1) Renal failure (ARF), acute on chronic: Code(s): N17.9 - Acute kidney failure, unspecified; N18.9 - Chronic kidney disease, unspecified Status: Acute Assessment and Plan: The patient has chronic kidney disease. Renal ultrasound is normal. Urinalysis shows protein and glucose. He has got some red blood cells as well. Urine electrolytes are show pre renal azotemia. Urine protein is a bit high at about 2000. Serology and electrophoresis are pending This could be due to diabetes, chronic vascular disease, and chronic use of loop diuretics. The patient has acute kidney injury. This is probably due to the thigh abscess and some pre renal factors. He still has some swelling. Intake/output is unrecorded. Will change diuretics to IV and add 1 day of metolazone. (2) Hyponatremia: Code(s): E87.1 - Hypo-osmolality and hyponatremia Status: Acute Assessment and Plan: Hyponatremia. Most likely due to diuretics. Sodium level is about the same. Patient is miserable with his fluid restriction. Sodium is better. Will increase the fluids allowed. (3) Abscess of left thigh: Code(s): L02.416 - Cutaneous abscess of left lower limb Status: Acute Assessment and Plan: On antibiotics and local wound care. (4) Diabetes: Code(s): E11.9 - Type 2 diabetes mellitus without complications Status: Acute Assessment and Plan: On Accu-Cheks and sliding-scale insulin. (5) Anemia: Code(s): D64.9 - Anemia, unspecified Status: Acute Assessment and Plan: On EPO. Additional Plan Subjective Date/time seen: 02/12/20 11:55 Interval history: Patient feels better in his leg. He is still swollen. Sitting up in a chair. Review of Systems Cardiovascular: Cardiovascular: Reports no additional cardiovascular complaints Respiratory: Respiratory: Reports no additional respiratory complaints Gastrointestinal: Gastrointestinal: Reports no additional gastrointestinal complaints Genitourinary: Genitourinary: Reports no additional male genitourinary complaints Exam Narrative: Exam Narrative: WDWN in NAD skin no rash or subcu nodules head ncat lungs clear bilaterally cor reg no rub abd BS+ nontender and soft ext 2+ edema all along. Objective Data Vital Signs Vital Signs: Vital Signs - 24 hr 02/11/20 14:00 02/11/20 22:00 02/11/20 22:45 Temperature 36.5 C 36.8 C Pulse Rate 72 74 80 Respiratory Rate 20 18 Blood Pressure 108/62 107/66 Pulse Oximetry 100 99 02/12/20 06:00 02/12/20 08:39 Temperature 36.6 C Pulse Rate 73 80 Respiratory Rate 16 Blood Pressure 106/68 Pulse Oximetry 97 Intake/Output Intake/Output: Intake & Output 02/09/20 02/10/20 02/11/20 02/12/20 23:59 23:59 23:59 23:59 Intake Total 1260 1010 1760 830 Output Total 700 Balance 2535 759 3799 830 Meds/Results Medications: Active Medications Generic Name Dose Route Start Last Admin Trade Name Freq PRN Reason Stop Dose Admin Acetaminophen 650 mg 02/05/20 08:36 02/08/20 21:04 Tylenol Tablet PO 650 mg QID PRN Administration Pain (Scale Score 1-3) Hydrocodone Bitart/Acetaminophen 1 tab 02/05/20 09:01 02/09/20 00:17 [place] 5-325 Mg PO 1 tab Q6H PRN Administration Pain Rated 4-6 Aspirin 81 mg 02/05/20 09:00 02/12/20 08:40 Aspirin Ec PO 81 mg DAILY DAVIAN Administration Atorvastatin Calcium 80 mg 02/05/20 21:00 02/11/20 22:45 Lipitor PO 80 mg HS DAVIAN Administration Bumetanide 1 mg 02/11/20 12:20 02/12/20 08:40 Bumex Po PO 1 mg BID DAVIAN Administration Calcium Carbonate 200 mg 02/06/20 21:50 02/08/20 16:43 Tums PO 200 mg Q6H PRN Administration Indigestion Carvedilol 18.75 mg 02/05/20 09:00 02/12/20 08:39 Coreg PO 18.75 mg Q12HR DAVIAN Administration Clopidogrel Bisulfate 75 mg 02/05/20 09:00
--- NOTE | 2020-02-12 12:22 | PM.IMPN ---
Progress Note: A&P Assessment and Plan (1) Cellulitis: Qualifiers: Laterality: left Site of cellulitis: extremity Site of cellulitis of extremity: lower extremity Qualified Code(s): L03.116 - Cellulitis of left lower limb Code(s): L03.90 - Cellulitis, unspecified Status: Acute Assessment and Plan: Cellulitis of the left lep with abscess. CT did not reveal any abscess cavity but surgery I and D the area with drainage of purulent material on 02/06/20 (POD #6). BCx Negative. WBC normal and no fevers. No wound cultures obtained. Currently on Primaxin and Vanco D#8. Continue current wound care. Will stop abx. (2) Renal failure (ARF), acute on chronic: Code(s): N17.9 - Acute kidney failure, unspecified; N18.9 - Chronic kidney disease, unspecified Status: Acute Assessment and Plan: Acute on chronic renal disease. Creatinine slowly improving and now down to 2.2. Could be acute related to the infection. IV fluids stopped 02/07. Renal US showing normal sized kidneys without hydronephrosis. Diurectics resumed yesterday and Cr remaining stable. Monitor closely since back on diuretics. Appreciate Nephrology input. (3) Elevated troponin: Code(s): R79.89 - Other specified abnormal findings of blood chemistry Status: Acute Assessment and Plan: Trop elevated at 0.11 but flat. EKG showing high lateral T wave inversions. He has hx of CAD. Echo showing EF 35-40% with Diast dysfunction but no wall motion abnormality. Not felt that this was an acute ischemic event. (4) Anemia: Code(s): D64.9 - Anemia, unspecified Status: Acute Assessment and Plan: Anemia noted on admission with hemoglobin 10.3. Hemoglobin since admission has been running in the 8-9 range and stable. Most likely anemia of chronic disease given iron studies. Could have component of dilution. Continue to monitor. (5) Diabetes: Code(s): E11.9 - Type 2 diabetes mellitus without complications Status: Acute Assessment and Plan: Glucose 556 on admission. DM is uncontrolled. A1c 12 Glucose reviewed on 02/12/20 and well controlled overall. Currently on Lantus and NovoLog with meals. Continue to monitor. (6) CHF (congestive heart failure): Code(s): I50.9 - Heart failure, unspecified Status: Acute Assessment and Plan: Was on NS for gentle hydration for renal failure but stopped 02/07. Pedal edema persistent. EF by echo here 35-40% with severe pulmonary hypertension estimated 91 so probably with some right sided heart failure. Continue Coreg. His Entresto remain on hold due to his renal failure. Diurectics resumed yesterday. Continue to monitor. (7) Hyponatremia: Code(s): E87.1 - Hypo-osmolality and hyponatremia Status: Acute Assessment and Plan: Sodium 124 on admission. Phi 8 but with underlying renal disease. Stopped IV fluids 02/07. Random cortisol level 8.6. TSH slightly elevated at 9.4 so levothyroxine started. Diuretics started 02/10. Na better at 131 today. (8) DVT prophylaxis: Code(s): Z29.9 - Encounter for prophylactic measures, unspecified Status: Acute Assessment and Plan: SCDs. Subjective Date/time seen: 02/12/20 12:23 Interval history: Date of visit 02/11 48yo male with DM CKD and CHF here for cellulitis and abscess of left hip. Patient slept poorly last night. He says it is related to anxiety. He denies any pain. Denies any orthopnea. No nausea or vomiting. No diarrhea. Eating normally. No chest pain or shortness of breath. Voiding normally. Denies symptoms of urine retention. Exam Narrative: Exam Narrative: 106/ 80 Gen - NARD sitting up in chair Chest - CTA bilaterally, nml RR CV - RRR S1/S2; 2/6 systolic murmur LSB Abd - soft, fullness in the right and lower abdomen Ext - bilateral 1+ pedal edema Skin - left lateral thigh wound cavity show
[2020-02-12 12:50] LABS: Glucose Point of Care 225 (65-105)
[2020-02-12] MEDS: INSULIN ASPART (*BKC) 100 UNITS/ML SUB-Q (12:52)
[2020-02-12] MEDS: INSULIN ASPART (*BKC) 100 UNITS/ML 6 UNITS SUB-Q ×2 (12:53→17:48)
[2020-02-12] MEDS: metOLazone 5 MG TABLET PO (12:54)
[2020-02-12] MEDS: BUMETANIDE INJ 1 MG/4 ML VIAL 2 MG IV PUSH ×2 (12:54→17:47)
[2020-02-12 14:00] VITALS: BP 111/61; PULSE 82; RESP 18; TEMP 35.9; O2SAT 100
--- NOTE | 2020-02-12 16:00 | PCOTNOTE ---
Patient refused treatment this session due to feeling too tired after walking with PT. Patient declined ADLs stating that he is going home tomorrow, I'll do it then . Pt declined BUE exercises; therapist explained the need for BUE exercises, pt was insistent that he would not be interested in therapy on this date.
[2020-02-12 18:58] LABS: Glucose Point of Care 135 (65-105)
[2020-02-12 20:36] VITALS: PULSE 82
[2020-02-12] MEDS: TAMSULOSIN HCL 0.4 MG CAPSULE PO (20:36)
[2020-02-12] MEDS: ATORVASTATIN 40 MG TABLET 80 MG PO (20:36)
[2020-02-12 22:00] VITALS: BP 102/55; PULSE 72; RESP 18; TEMP 36.7; O2SAT 98
[2020-02-12 22:58] LABS: Glucose Point of Care 185 (65-105)
[2020-02-13] MEDS: LEVOTHYROXINE SODIUM 50 MCG TABLET PO (05:41)
[2020-02-13 06:00] VITALS: BP 115/74; PULSE 75; RESP 18; TEMP 36.4; O2SAT 100
[2020-02-13 06:19] LABS: Basophils Percent Auto 0.2 % (0.2-1.2); Eosinophils Absolute Auto 0.2 K/mm3 (0-0.3); Hematocrit 26.3 % (42.0-52.0); Hemoglobin 8.8 g/dL (14.0-18.0); Immature Granulocyte Absolute 0.08 K/mm3 (0.00-0.031); Immature Granulocyte Percent A 0.8 % (0-0.5); Lymphocytes Percent Auto 8.4 % (18.3-44.2); Mean Corpuscular HGB Conc 33.5 g/dl (32-36); Mean Corpuscular Hemoglobin 28.2 pg (26-34); Mean Corpuscular Volume 84.3 fl (80-100); Mean Platelet Volume 9.2 fl (7.4-10.4); Monocytes Absolute Auto 0.5 K/mm3 (0.1-0.6); Monocytes Percent Auto 5.5 % (2.6-8.5); Neutrophils Absolute Auto 7.9 K/mm3 (1.3-6.7); Neutrophils Percent Auto 83.1 % (45.5-73.1); Platelet Count Result 269 k/mm3 (150-375); Red Blood Count 3.12 M/mm3 (4.6-6.20); Red Cell Distribution Width 15.3 % (11.5-14.5); White Blood Count 9.5 K/mm3 (4.5-10.0)
[2020-02-13 06:44] LABS: Blood Urea Nitrogen 83 mg/dL (9-20); Calcium 8.6 mg/dL (8.4-10.2); Carbon Dioxide 22 mmol/L (22-30); Chloride 103 mmol/L (98-107); Estimated CRCL calculation 34 ml/min; Estimated Glomerular Filt Rate 31; Glucose 121 mg/dL (75-110); Phosphorus 5.3 mg/dL (2.5-4.5); Potassium 4.2 mmol/L (3.4-5.0); Sodium 133 mmol/L (137-145)
[2020-02-13 08:00] VITALS: PULSE 67; RESP 16; O2SAT 98
[2020-02-13] MEDS: INSULIN GLARGINE (*BKC) 100 UNITS/ML 36 UNITS SUB-Q (09:21)
[2020-02-13] MEDS: FINASTERIDE 5 MG TABLET PO (09:24)
[2020-02-13] MEDS: CLOPIDOGREL BISULFATE 75 MG TABLET PO (09:24)
[2020-02-13] MEDS: CHOLECALCIFEROL 1,000 UNIT TABLET 1000 UNITS PO (09:24)
[2020-02-13] MEDS: ASPIRIN 81 MG ENTERIC TABLET PO (09:24)
[2020-02-13] MEDS: carvediloL 6.25 MG TABLET 18.75 MG PO (09:24)
[2020-02-13] MEDS: THERAPEUTIC MULTIVITAMINS/MINERALS TAB (*BKC) 1 TABLET PO (09:24)
[2020-02-13] MEDS: polyethylene glycoL 3350 17 GM POWD.PACK 34 GM PO (09:25)
[2020-02-13] MEDS: BUMETANIDE INJ 1 MG/4 ML VIAL 2 MG IV PUSH (09:25)
[2020-02-13] MEDS: SILVERGEL (ELTA) 45 ML 1 APPLIC TOPICAL (09:26)
[2020-02-13] MEDS: EUCERIN CREAM 120 GM JAR 1 APPLIC TOPICAL (09:26)
[2020-02-13] MEDS: DOCUSATE SODIUM 100 MG CAPSULE PO (09:33)
[2020-02-13 10:09] LABS: Glucose Point of Care 116 (65-105)
--- NOTE | 2020-02-13 11:24 | PM.IMPN ---
Progress Note: A&P Assessment and Plan (1) Cellulitis: Qualifiers: Laterality: left Site of cellulitis: extremity Site of cellulitis of extremity: lower extremity Qualified Code(s): L03.116 - Cellulitis of left lower limb Code(s): L03.90 - Cellulitis, unspecified Status: Acute Assessment and Plan: Cellulitis of the left lep with abscess. CT did not reveal any abscess cavity but surgery I and D the area with drainage of purulent material on 02/06/20 (POD #7). BCx Negative. WBC normal and no fevers. No wound cultures obtained. Completed Primaxin and Vanco coarse. Continue current wound care. Discussed with nephrology. [place] patient could be discharged back to the [place]. Will prepare discharge. (2) Renal failure (ARF), acute on chronic: Code(s): N17.9 - Acute kidney failure, unspecified; N18.9 - Chronic kidney disease, unspecified Status: Acute Assessment and Plan: Acute on chronic renal disease. Creatinine slowly improving and now down to 2.2 and stable. Could be acute related to the infection. IV fluids stopped 02/07. Renal US showing normal sized kidneys without hydronephrosis. Diuretics resumed and Cr remaining stable. Monitor closely since back on diuretics. Appreciate Nephrology input. (3) Elevated troponin: Code(s): R79.89 - Other specified abnormal findings of blood chemistry Status: Acute Assessment and Plan: Trop elevated at 0.11 but flat. EKG showing high lateral T wave inversions. He has hx of CAD. Echo showing EF 35-40% with Diast dysfunction but no wall motion abnormality. Not felt that this was an acute ischemic event. (4) Anemia: Code(s): D64.9 - Anemia, unspecified Status: Acute Assessment and Plan: Anemia noted on admission with hemoglobin 10.3. Hemoglobin since admission has been running in the 8-9 range and stable. Most likely anemia of chronic disease given iron studies. Could have component of dilution. Continue to monitor. (5) Diabetes: Code(s): E11.9 - Type 2 diabetes mellitus without complications Status: Acute Assessment and Plan: Glucose 556 on admission. DM is uncontrolled. A1c 12 Glucose reviewed on 02/13/20 and well controlled overall. Currently on Lantus and NovoLog with meals. Continue to monitor. (6) CHF (congestive heart failure): Code(s): I50.9 - Heart failure, unspecified Status: Acute Assessment and Plan: Was on NS for gentle hydration for renal failure but stopped 02/07. Pedal edema persistent. EF by echo here 35-40% with severe pulmonary hypertension estimated 91 so probably with some right sided heart failure. Continue Coreg. His Entresto remain on hold due to his renal failure. Diurectics resumed yesterday. Continue to monitor. (7) Hyponatremia: Code(s): E87.1 - Hypo-osmolality and hyponatremia Status: Acute Assessment and Plan: Sodium 124 on admission. Phi 8 but with underlying renal disease. Stopped IV fluids 02/07. Random cortisol level 8.6. TSH slightly elevated at 9.4 so levothyroxine started. Diuretics started 02/10. Na better at 133 today. (8) DVT prophylaxis: Code(s): Z29.9 - Encounter for prophylactic measures, unspecified Status: Acute Assessment and Plan: SCDs. Subjective Date/time seen: 02/13/20 11:24 Interval history: Date of visit 02/12 48yo male with DM CKD and CHF here for cellulitis and abscess of left hip. Slept okay. Does not feel leg edema much improved. Eating okay. Up to chair today. No n/v. No significant left hip pain Exam Narrative: Exam Narrative: 115/74 AFebrile Gen - NARD sitting up in chair Chest - CTA bilaterally, nml RR CV - RRR S1/S2 Abd - soft, obese, NT, +BS Ext - bilateral 1+ pitting pedal edema Skin - left lateral thigh wound dressing clean and dry. minimal surrounding purple-red erythema Psych - pleasant and cooperative.
[2020-02-13] MEDS: INSULIN ASPART (*BKC) 100 UNITS/ML 6 UNITS SUB-Q (11:56)
[2020-02-13 12:19] LABS: Glucose Point of Care 197 (65-105)
[2020-02-13 14:00] VITALS: BP 114/72; PULSE 67; RESP 16; TEMP 36.8; O2SAT 98
--- NOTE | 2020-02-13 14:33 | PM.DS ---
DS: Admitting Diagnosis Admitting Diagnosis Admitting Diagnosis: Cellulitis of left lower limb DS: Discharge Diagnosis Discharge Diagnosis (1) Cellulitis: Qualifiers: Laterality: left Site of cellulitis: extremity Site of cellulitis of extremity: lower extremity Qualified Code(s): L03.116 - Cellulitis of left lower limb Code(s): L03.90 - Cellulitis, unspecified Status: Acute Assessment and Plan: Patient admitted for cellulitis of the left leg with abscess. CT did not reveal any abscess cavity but surgery I and D the area with drainage of purulent material on . BCx negative. WBC normal and no fevers. No wound cultures obtained. Treated with Primaxin and Vanco and completed a course. Still with open wound that will need continued wound care. (2) Renal failure (ARF), acute on chronic: Qualifiers: Acute renal failure type: unspecified Chronic kidney disease stage: stage 3 (moderate) Qualified Code(s): N17.9 - Acute kidney failure, unspecified; N18.3 - Chronic kidney disease, stage 3 (moderate) Code(s): N17.9 - Acute kidney failure, unspecified; N18.9 - Chronic kidney disease, unspecified Status: Acute Assessment and Plan: Acute on chronic renal disease. Creatinine 2.9 on admission but slowly improved and now down to 2.2. Could be acute related to the infection. IV fluids stopped 02/07. Renal US showing normal sized kidneys without hydronephrosis. Diurectics resumed and Cr remained stable. Resumed some of the patients home diuretics after discussing with Nephrology. Will need followup lab work after discharge. (3) Elevated troponin: Code(s): R79.89 - Other specified abnormal findings of blood chemistry Status: Acute Assessment and Plan: Trop elevated at 0.11 but flat. EKG showing high lateral T wave inversions. No old EKG to compasre. He has hx of CAD. Echo showing EF 35-40% with Diast dysfunction but no wall motion abnormality. Probably related to the infectious process and DEIRDRE/CKD. Not felt that this was an acute ischemic event. (4) Anemia: Qualifiers: Anemia type: due to chronic kidney disease Chronic kidney disease stage: stage 3 (moderate) Qualified Code(s): N18.3 - Chronic kidney disease, stage 3 (moderate); D63.1 - Anemia in chronic kidney disease Code(s): D64.9 - Anemia, unspecified Status: Acute Assessment and Plan: Anemia noted on admission with hemoglobin 10.3. Hemoglobin since admission has been running in the 8-9 range and stable. Most likely anemia of chronic disease given iron studies. Could have component of dilution. (5) Diabetes: Qualifiers: Chronic kidney disease stage: stage 3 (moderate) Diabetes mellitus complication detail: with chronic kidney disease Diabetes mellitus complication status: with kidney complications Diabetes mellitus delivery of shopping news insulin use: with delivery of shopping news use Diabetes mellitus type: type 2 Qualified Code(s): E11.22 - Type 2 diabetes mellitus with diabetic chronic kidney disease; N18.3 - Chronic kidney disease, stage 3 (moderate); Z79.4 - group home (current) use of insulin Code(s): E11.9 - Type 2 diabetes mellitus without complications Status: Acute Assessment and Plan: Glucose 556 on admission. DM is uncontrolled. A1c 12 Glucose monitored closely and became better controlled. We continued him on Lantus and NovoLog with meals. (6) CHF (congestive heart failure): Qualifiers: Heart failure type: biventricular Qualified Code(s): I50.82 - Biventricular heart failure Code(s): I50.9 - Heart failure, unspecified Status: Acute Assessment and Plan: Was on NS for gentle hydration for renal failure but stopped 02/07. Pedal edema persistent. EF by echo here 35-40% with severe pulmonary hypertension estimated 91 so probably with some right sided heart failure. We continued his Coreg but
--- NOTE | 2020-02-13 15:38 | PM.PNNEP ---
Progress Note: A&P Assessment and Plan (1) Renal failure (ARF), acute on chronic: Code(s): N17.9 - Acute kidney failure, unspecified; N18.9 - Chronic kidney disease, unspecified Status: Acute Assessment and Plan: The patient has chronic kidney disease. Renal ultrasound is normal. Urinalysis shows protein and glucose. He has got some red blood cells as well. Urine electrolytes are show pre renal azotemia. Urine protein is a bit high at about 2000. Serology and electrophoresis are pending This could be due to diabetes, chronic vascular disease, and chronic use of loop diuretics. The patient has acute kidney injury. This is probably due to the thigh abscess and some pre renal factors. The acute phase is resolved. He has chronic kidney disease as well and seems to have reached a baseline. He still has some swelling. This is most likely from his severe pulmonary hypertension. He also has some decrease in LV function. Discussed at length with the patient. This will be a long-term issue balancing diuretics as an increase in dose will cause increased creatinine but better swelling, and a decrease in dose will cause the office at. Were trying to find happy medium. From kidney standpoint it is okay for discharge. Discussed with Dr. Hartley. (2) Hyponatremia: Code(s): E87.1 - Hypo-osmolality and hyponatremia Status: Acute Assessment and Plan: Hyponatremia. Most likely due to diuretics. Sodium level is about the same. Continues same fluids. (3) Abscess of left thigh: Code(s): L02.416 - Cutaneous abscess of left lower limb Status: Acute Assessment and Plan: On antibiotics and local wound care. (4) Diabetes: Code(s): E11.9 - Type 2 diabetes mellitus without complications Status: Acute Assessment and Plan: On Accu-Cheks and sliding-scale insulin. (5) Anemia: Code(s): D64.9 - Anemia, unspecified Status: Acute Assessment and Plan: On EPO. Additional Plan Subjective Date/time seen: 02/13/20 15:38 Interval history: Patient feels better in his leg. He is still swollen. This is a long-term issue. Review of Systems Cardiovascular: Cardiovascular: Reports no additional cardiovascular complaints Respiratory: Respiratory: Reports no additional respiratory complaints Gastrointestinal: Gastrointestinal: Reports no additional gastrointestinal complaints Genitourinary: Genitourinary: Reports no additional male genitourinary complaints Exam Narrative: Exam Narrative: WDWN in NAD skin no rash or subcu nodules head ncat lungs clear bilaterally cor reg no rub abd BS+ nontender and soft ext 1-2+ edema all along. Objective Data Vital Signs Vital Signs: Vital Signs - 24 hr 02/12/20 20:36 02/12/20 22:00 02/13/20 06:00 Temperature 36.7 C 36.4 C L Pulse Rate 82 72 75 Respiratory Rate 18 18 Blood Pressure 102/55 L 115/74 Pulse Oximetry 98 100 02/13/20 14:00 Temperature 36.8 C Pulse Rate 67 Respiratory Rate 16 Blood Pressure 114/72 Pulse Oximetry 98 Intake/Output Intake/Output: Intake & Output 02/10/20 02/11/20 02/12/20 02/13/20 23:59 23:59 23:59 23:59 Intake Total 1010 1760 1950 940 Output Total 700 Balance 310 1760 1950 940 Meds/Results Medications: Active Medications Generic Name Dose Route Start Last Admin Trade Name Freq PRN Reason Stop Dose Admin Acetaminophen 650 mg 02/05/20 08:36 02/08/20 21:04 Tylenol Tablet PO 650 mg QID PRN Administration Pain (Scale Score 1-3) Hydrocodone Bitart/Acetaminophen 1 tab 02/05/20 09:01 02/09/20 00:17 [place] 5-325 Mg PO 1 tab Q6H PRN Administration Pain Rated 4-6 Aspirin 81 mg 02/05/20 09:00 02/13/20 09:24 Aspirin Ec PO 81 mg DAILY DAVIAN Administration Atorvastatin Calcium 80 mg 02/05/20 21:00 02/12/20 20:36 Lipitor PO 80 mg HS DAVIAN Administration Bumetanide 2 mg
--- NOTE | 2020-02-13 16:34 | PCDIET ---
Weekly nutritional screen. Patient is tolerating current diet with adequate intake. No weight loss reported. No nutritional needs at this time.
[2020-02-13 21:20] LABS: Albumin 2.1 g/dL (3.8-4.8); Alpha 1 Globulin 0.4 g/dL (0.2-0.3); Beta 1 Globulin 0.3 g/dL (0.4-0.6); Gamma Globulin 0.8 g/dL (0.8-1.7); Protein, Total 4.9 g/dL (6.1-8.1)
[2020-02-13 23:24] LABS: Creatinine, Random Urine 53 mg/dL (20-320); Total Protein/Creatinine Ratio 1811 mg/g creat (22-128)
[2020-02-13 23:43] LABS: Kappa\\Lambda Light Chains 0.91 (0.26-1.65); Lambda Light Chain 86.2 mg/L (5.7-26.3)
[2020-02-14 10:21] LABS: ANCA Screen Negative (Negative)
[2020-02-14 19:10] LABS: Anti Glomerular Basement Memb <1.0 AI (<1.0)
[2020-02-15 10:55] LABS: Chloride Rand Ur <20 mmol/L (32-290); Creatinine Random Urine 52 mg/dL (20-320)
[2020-02-16 14:09] LABS: Cryoglobulin, QL Negative (Negative)
== END 2020-02-13 16:30 | DRG 364 ==
LOC: ANHED 06:16 → ANHIMU 06:27 → ANH3MEDSUR 02-06 15:47
PROVIDERS: Internal Medicine; Internal Medicine Nephrology; Admitting Provider Family Medicine; Emergency Provider Emergency Medicine; Visit Provider Internal Medicine
DX: L03.116 Cellulitis of left lower limb (principal); L02.416 Cutaneous abscess of left lower limb; Z11.59 Encounter for screening for other viral diseases; N17.9 Acute kidney failure, unspecified; E11.22 Type 2 diabetes mellitus with diabetic chronic kidney disease; N18.3 Chronic kidney disease, stage 3 (moderate); E11.65 Type 2 diabetes mellitus with hyperglycemia; R79.89 Other specified abnormal findings of blood chemistry; D63.1 Anemia in chronic kidney disease; E87.1 Hypo-osmolality and hyponatremia; T50.2X5A Adverse effect of carbonic-anhydrase inhibitors, benzothiadiazides and other diuretics, initial encounter; I50.9 Heart failure, unspecified; E86.0 Dehydration; I25.10 Atherosclerotic heart disease of native coronary artery without angina pectoris; D63.8 Anemia in other chronic diseases classified elsewhere; F17.210 Nicotine dependence, cigarettes, uncomplicated; Z95.5 Presence of coronary angioplasty implant and graft; Z79.4 Long term (current) use of insulin
CPT/HCPCS: 36415; 71045; 72192; 76775; 80048; 80053; 80069; 80074; 80202; 81001; 81050; 82010; 82436; 82533; 82570; 82595; 82607; 82728; 82948; 83036; 83520; 83540; 83550; 83605; 83735; 83880; 83883; 83935; 84100; 84155; 84156; 84165; 84166; 84300; 84443; 84484; 85025; 85999; 86021; 86038; 86160; 86225; 87040; 87086; 87635; 93005; 93306; 96361; 96365; 96375; 97116; 97162; 97165; 97530; 99285; A9270; C9803; J0743; J1815; J2270; J2405; J3370; J3475; J7030; J7040; Q4081; U0003